=== PATIENT | female | born 1970 | race Caucasian/White ===

== ENCOUNTER 2020-11-03 15:55 | Inpatient (IN) | payer BC ==
[2020-11-03] MEDS ORDERED: FEVERALL 650 MG PR PRN (16:07)
[2020-11-03 16:59] LABS: Absolute Neutrophil Ct (ANC) 11.43 (1.4-6.9); BASOPHIL % 0.1 % (0.0-0.4); Basophil (Absolute #) 0.01 (0-0.4); Eosinophil (Absolute #) 0 (0-0.5); Hematocrit 37.1 % (35-47); Hemoglobin 11.6 gm/dl (12.0-16.0); Lymphocyte (Absolute #) 0.14 (1.0-4.6); Lymphocytes % 1.2 % (24.0-44.0); Mean Cell Volume 71.2 fl (78-100); Mean Corpuscular Hemoglobin 22.3 pg (26-32); Mean Corpuscular Hgb Concent. 31.3 g/dl (32-36); Monocyte (Absolute #) 0.21 (0.0-1.3); Monocytes % 1.8 % (0.0-12.0); Neutrophil % 96.9 % (36.0-66.0); Platelet Count 638 K/mm3 (150-450); Red Blood Count 5.21 M/mm3 (4.1-5.4); Red Cell Distribution Width 21.7 % (11.5-14.0); White Blood Count 11.8 K/mm3 (4.0-10.5)
[2020-11-03] MEDS ORDERED: solu-MEDROL 125 MG IV ONE (17:00)
--- NOTE | 2020-11-03 17:02 | PCM.HP ---
History of Present Illness - Chief Complaint Chief Complaint: partial small bowel obstruction History of Present Illness: is a 50 year old female patient of Dr Rodgers with a longstanding history of Crohn's disease, she has been on entyvio for the last year but has had recent flares, for the last several days had been unable to have a bowel movement and complains of pain in her periumbilical and epigastric region with vomiting and inability to tolerate po intake. - Review of Systems Constitutional: No Fever, No Chills Respiratory: No Cough, No Short Of Breath Cardiac: No Chest Pain, No Edema, No Syncope Abdominal/Gastrointestinal: Abdominal Pain, Nausea, Vomiting, Constipation Genitourinary Symptoms: No Dysuria Skin: No Rash All Other Systems: Reviewed and Negative Medications & Allergies Home Medications: Home Medication List Azathioprine [Imuran] 50 mg PO TID 10/13/19 [History Confirmed 10/25/20] Prednisone 5 mg [Deltasone 5 mg] 10 mg PO DAILY PRN PRN 10/13/19 [History Confirmed 10/25/20] Ferrous Sulfate [Iron] 325 mg PO DAILY 02/18/20 [History Confirmed 10/25/20] Allergies/Adverse Reactions: Allergies Allergy/AdvReac Type Severity Reaction Status Date / Time No Known Drug Allergies Allergy Verified 08/30/20 12:51 - Past Medical History Past Medical History: Yes Neurological History: No Pertinent History ENT History: No Pertinent History Cardiac History: No Pertinent History Respiratory History: No Pertinent History Endocrine Medical History: No Pertinent History Musculoskelatal History: Other GI Medical History: Other History: No Pertinent History Pyscho-Social History: No Pertinent History Reproductive Disorders: No Pertinent History Comment: crohns and anemia - Past Surgical History Past Surgical History: Yes Neuro Surgical History: No Pertinent History Cardiac History: No Pertinent History Respiratory Surgery: No Pertinent History GI Surgical History: No Pertinent History Genitourinary Surgical Hx: No Pertinent History Musculskeletal Surgical Hx: No Pertinent History Female Surgical History: Other Other Surgical History: uterine ablation - Social History Smoking Status: Never smoker Exposure to second hand smoke: No Alcohol: None Drug Use: none - Physical Exam Vital Signs: Vital Signs - 24 hr Temp Pulse Resp BP Pulse Ox 11/03/20 16:44 98 F 109 H 18 145/71 97 General Appearance: mild distress Neurologic Exam: alert, oriented x 3, cooperative Respiratory Exam: normal breath sounds, lungs clear, No respiratory distress Cardiovascular Exam: regular rate/rhythm, normal heart sounds, normal peripheral pulses Gastrointestinal/Abdomen Exam: soft, distention, No normal bowel sounds, No guarding, No rebound Extremity Exam: normal inspection, normal range of motion, pelvis stable Skin Exam: normal color, warm, dry, No rash Assessment/Plan (1) Partial obstruction of small intestine Current Visit: Yes Status: Acute Assessment & Plan: surgery consulted, I spoke with Dr Mychal Swain on telephone at the time of admission and discussed current management Code(s): K56.600 - PARTIAL INTESTINAL OBSTRUCTION, UNSPECIFIED TO CAUSE (2) Crohns disease of small intestine Current Visit: Yes Status: Acute Assessment & Plan: NPO, IV fluids and started on solu medrol 125mg iv x 1 then 80mg IV q6hrs as well as levaquin/flagyl. surgery consulted, will treat partial SBO conservatively at this time. lovenox started, no immediate surgical intervention is anticipated. Code(s): K50.00 - CROHN'S DISEASE OF SMALL INTESTINE WITHOUT COMPLICATIONS
[2020-11-03 17:27] LABS: ALBUMIN 4.5 g/dL (3.5-5.0); ANION GAP 21.7 MEQ/L (5-15); BILIRUBIN,TOTAL 0.5 mg/dL (0.2-1.3); Calcium 10.2 mg/dL (8.4-10.2); Creatinine 1 1.74 mg/dL (0.52-1.04); EST GLOMERULAR FILTRATION RATE 32.7 ML/MIN; Total Protein 8.1 g/dL (6.3-8.2)
[2020-11-03 17:29] LABS: INFLUENZA A NEGATIVE (NEGATIVE); INFLUENZA B NEGATIVE (NEGATIVE); RESPIRATORY SYNCTIAL VIRUS NEGATIVE (Negative)
[2020-11-03] MEDS: Zofran 4 MG/2 ML VIAL IV PRN (17:46)
[2020-11-03] MEDS: Hydromorphone 1 mg/ml Injection IV PRN (17:47)
[2020-11-03] MEDS: Levofloxacin 500MG/100ML D5W 500 MG/100 ML BAG IV SCH (19:01)
[2020-11-03] MEDS: Dextrose 5% -0.45 NaCl 1000 ML 1,000 ML IV SCH (19:01)
[2020-11-03 19:27] LABS: Slide Review 1 YES
[2020-11-03] MEDS: FLAGYL 500 MG IVPB 500 MG/100 ML BAG IV SCH (20:23)
[2020-11-03 21:03] LABS: Appearance CLEAR (CLEAR); Bacteria FEW /HPF (NEGATIVE); Bilirubin NEGATIVE (NEGATIVE); Blood SMALL Ery/ul (0-5); Epithelial Cells RARE /HPF (FEW); Glucose NEGATIVE (NEGATIVE); Ketones SMALL (NEGATIVE); Leukocyte Esterase MODERATE (NEGATIVE); Mucus SLIGHT /HPF (NEGATIVE); Nitrite NEGATIVE (NEGATIVE); Protein,Urine Dip 100 (Negative); Urobilinogen NEGATIVE mg/dL (0-1)
[2020-11-03] MEDS ORDERED: AZATHIOPRINE 150 MG PO SCH (22:00)
[2020-11-03] MEDS: PATIENT OWN MEDICATION PO SCH (22:50)
[2020-11-04] MEDS: Hydromorphone 1 mg/ml Injection IV PRN (00:48)
[2020-11-04] MEDS: solu-MEDROL 125 MG IV SCH ×2 (00:49→06:27)
[2020-11-04] MEDS: FLAGYL 500 MG IVPB 500 MG/100 ML BAG IV SCH ×3 (00:49→11:57)
[2020-11-04 06:31] LABS: ALBUMIN 3.7 g/dL (3.5-5.0); ALKALINE PHOSPHATASE 56 U/L (38-126); ANION GAP 12.3 MEQ/L (5-15); BLOOD UREA NITROGEN 26 mg/dL (7-17); CHLORIDE 95 mmol/L (98-107); Calcium 9.3 mg/dL (8.4-10.2); Carbon Dioxide 30 mmol/L (22-30); Creatinine 1 1.02 mg/dL (0.52-1.04); EST GLOMERULAR FILTRATION RATE > 60.0 ML/MIN; Glucose 173 mg/dL (74-106); Potassium 4.1 mmol/L (3.5-5.1); SGOT/AST 13 U/L (14-36); SGPT/ALT 7 U/L (0-35); SODIUM 133 mmol/L (137-145); Total Protein 6.6 g/dL (6.3-8.2)
[2020-11-04 06:45] LABS: Absolute Neutrophil Ct (ANC) 4.76 (1.4-6.9); BASOPHIL % 0.2 % (0.0-0.4); Basophil (Absolute #) 0.01 (0-0.4); Eosinophil (Absolute #) 0 (0-0.5); Hematocrit 31.8 % (35-47); Hemoglobin 9.6 gm/dl (12.0-16.0); Lymphocyte (Absolute #) 0.12 (1.0-4.6); Lymphocytes % 2.4 % (24.0-44.0); Mean Cell Volume 72.3 fl (78-100); Mean Corpuscular Hemoglobin 21.8 pg (26-32); Mean Corpuscular Hgb Concent. 30.2 g/dl (32-36); Monocyte (Absolute #) 0.11 (0.0-1.3); Monocytes % 2.2 % (0.0-12.0); Neutrophil % 95.2 % (36.0-66.0); Platelet Count 461 K/mm3 (150-450); Red Cell Distribution Width 20.8 % (11.5-14.0)
[2020-11-04] MEDS: Zofran 4 MG/2 ML VIAL IV PRN ×2 (07:36→14:08)
[2020-11-04] MEDS: Dextrose 5% -0.45 NaCl 1000 ML 1,000 ML IV SCH (07:36)
--- NOTE | 2020-11-04 08:11 | PCM.NOTE ---
Date and Time: 11/04/20809 Subjective Assessment: patient reports her pain and nausea are currently well controlled with meds and she is feeling slightly better today. Dr Swain saw patient last night and planning for a resection of distal small bowel later today due to recurrence of flares and difficulty tolerating po Objective Exam General Appearance: no apparent distress, alert Skin Exam: normal color, warm, dry Respiratory Exam: normal breath sounds, lungs clear, No respiratory distress Cardiovascular Exam: regular rate/rhythm, normal heart sounds Gastrointestinal/Abdomen Exam: soft, distention, No normal bowel sounds Extremity Exam: normal inspection, normal range of motion OBJECTIVE DATA Vital Signs: Vital Signs - 24 hr Temp Pulse Resp BP Pulse Ox 11/04/20 08:00 97.5 F 62 18 121/57 98 11/04/20 07:58 121/57 11/04/20 04:10 97.4 F 62 16 111/55 97 11/04/20 00:00 98.3 F 86 16 117/58 97 11/03/20 20:00 98.1 F 94 H 18 116/60 96 11/03/20 17:03 98.0 F 108 H 18 145/71 97 11/03/20 16:44 98 F 109 H 18 145/71 97 Pain Assessment - Last Documented Pain Intensity 0 Pain Scale Used 0-10 Pain Scale Intake and Output: Intake & Output 11/01/20 11/02/20 11/03/20 11/04/20 11:59 11:59 11:59 11:59 Intake Total 1000 Output Total 300 Balance 700 Weight 68.3 kg Lab Results: Lab Results-Last 24 Hours 11/03/20 11/03/20 11/03/20 Range/Units 16:29 16:45 16:45 WBC 11.8 H (4.0-10.5) K/mm3 RBC 5.21 (4.1-5.4) M/mm3 Hgb 11.6 L (12.0-16.0) gm/dl Hct 37.1 (35-47) % MCV 71.2 L (78-100) fl MCH 22.3 L (26-32) pg MCHC 31.3 L (32-36) g/dl RDW 21.7 H (11.5-14.0) % Plt Count 638 H (150-450) K/mm3 Gran % 96.9 H (36.0-66.0) % Eos # (Auto) 0 (0-0.5) Absolute Lymphs (auto) 0.14 L (1.0-4.6) Absolute Monos (auto) 0.21 (0.0-1.3) Lymphocytes % 1.2 L (24.0-44.0) % Monocytes % 1.8 (0.0-12.0) % Eosinophils % 0.0 (0.00-5.0) % Basophils % 0.1 (0.0-0.4) % Absolute Granulocytes 11.43 H (1.4-6.9) Basophils # 0.01 (0-0.4) Sodium 134 L (137-145) mmol/L Potassium 4.0 (3.5-5.1) mmol/L Chloride 92 L (98-107) mmol/L Carbon Dioxide 24 (22-30) mmol/L Anion Gap 21.7 H (5-15) MEQ/L BUN 32 H (7-17) mg/dL Creatinine 1.74 H (0.52-1.04) mg/dL Estimated GFR 32.7 ML/MIN Glucose 176 H (74-106) mg/dL Calcium 10.2 (8.4-10.2) mg/dL Total Bilirubin 0.50 (0.2-1.3) mg/dL AST 18 (14-36) U/L ALT 11 (0-35) U/L Alkaline Phosphatase 84 (38-126) U/L Serum Total Protein 8.1 (6.3-8.2) g/dL Albumin 4.5 (3.5-5.0) g/dL Urine Color (YELLOW) Urine Appearance (CLEAR) Urine pH (5-6) Ur Specific [place] (1.005-1.025) Urine Protein (Negative) Urine Ketones (NEGATIVE) Urine Blood (0-5) Jose C/ul Urine Nitrite (NEGATIVE) Urine Bilirubin (NEGATIVE) Urine Urobilinogen (0-1) mg/dL Ur Leukocyte Esterase (NEGATIVE) Urine WBC (Auto) (0-5) /HPF Urine RBC (Auto) (0-2) /HPF U Epithel Cells (Auto) (FEW) /HPF Urine Bacteria (Auto) (NEGATIVE) /HPF Urine Mucus (Auto) (NEGATIVE) /HPF Urine Culture Reflexed (NO) Urine Glucose (NEGATIVE) mg/dL Influenza Type A Ag NEGATIVE (NEGATIVE) Influenza Type B Ag NEGATIVE (NEGATIVE) RSV (PCR) NEGATIVE (Negative) SARS-CoV-2 (PCR) NEGATIVE (NEGATIVE) Slides for Path Review YES 11/03/20 11/04/20 11/04/20 Range/Units 20:20 05:15 05:15 WBC 5.0 (4.0-10.5) K/mm3 RBC 4.40 (4.1-5.4) M/mm3 Hgb 9.6 L (12.0-16.0) gm/dl Hct 31.8 L (35-47) % MCV 72.3 L (78-100) fl MCH 21.8 L (26-32) pg MCHC 30.2 L (32-36) g/dl RDW 20.8 H (11.5-14.0) % Plt Count 461 H (150-450) K/mm3 Gran % 95.2 H (36.0-66.0) % Eos # (Auto) 0 (0-0.5) Absolute Lymphs (auto) 0.12 L (1.0-4.6) Absolute Monos (auto) 0.11 (0.0-1.3) Lymphocytes % 2.4 L (24.0-44.0) % Monocytes % 2.2 (0.0-12.0) % Eosinophils % 0.0 (0.00-5.0) % Basophils % 0.2 (0.0-0.4) % Absolute Granulocytes 4.76 (1.4-6.9) Basophils # 0.01 (0-0.4) Sodium 133 L (137-145) mmol/L Potassium 4.1 (3.5-5.1) mmol/L Chloride 95 L (98-107) mmol/L Carbon Dioxide 30 (22-30) mmol/L Anion Gap 12.3 (5-15) MEQ/L BUN 26 H (7-17) mg/dL Creatinine 1.02 (0.52-1.04) mg/dL Estimated GFR > 60.0 ML/MIN Glucose 173 H (74-106) mg/dL Calcium 9.3 (8.4-10.2) mg/dL Total Bilirubin 0.40 (0.2-1.3) mg/dL AST 13 L (14-36) U/L ALT 7 (0-35) U/L Alkaline Phosphatase 56 (38-126) U/L Serum Total Protein 6.6 (6.3-8.2) g/dL Albumin 3.7 (3.5-5.0) g/dL Urine Color YELLOW (YELLOW) Urine Appearance CLEAR (CLEAR) Urine pH 5.0 (5-6) Ur Specific [place] S3 (1.005-1.025) Urine Protein 100 (Negative) Urine Ketones SMALL (NEGATIVE) Urine Blood SMALL (0-5) Jose C/ul Urine Nitrite NEGATIVE (NEGATIVE) Urine Bilirubin NEGATIVE (NEGATIVE) Urine Urobilinogen NEGATIVE (0-1) mg/dL Ur Leukocyte Esterase MODERATE (NEGATIVE) Urine WBC (Auto) 11-15 (0-5) /HPF Urine RBC (Auto) 11-15 (0-2) /HPF U Epithel Cells (Auto) RARE (FEW) /HPF Urine Bacteria (Auto) FEW (NEGATIVE) /HPF Urine Mucus (Auto) SLIGHT (NEGATIVE) /HPF Urine Culture Reflexed YES (NO) Urine Glucose NEGATIVE (NEGATIVE) mg/dL Influenza Type A Ag (NEGATIVE) Influenza Type B Ag (NEGATIVE) RSV (PCR) (Negative) SARS-CoV-2 (PCR) (NEGATIVE) Slides for Path Review Assessment/Plan (1) Partial obstruction of small intestine Current Visit: Yes Status: Acute Assessment & Plan: surgery consult, appreciate input Code(s): K56.600 - PARTIAL INTESTINAL OBSTRUCTION, UNSPECIFIED TO CAUSE (2) Crohns disease of small intestine Current Visit: Yes Status: Acute Code(s): K50.00 - CROHN'S DISEASE OF SMALL INTESTINE WITHOUT COMPLICATIONS
[2020-11-04] MEDS: PATIENT OWN MEDICATION PO SCH ×2 (09:44→14:10)
[2020-11-04] MEDS ORDERED: ENOXAPARIN SODIUM SQ SCH (10:00)
[2020-11-04 13:04] LABS: ABO TYPING A; Antibody Screen NEGATIVE (NEGATIVE); RH TYPING NEGATIVE
--- NOTE | 2020-11-04 14:23 | CONS ---
CONSULT DATE: 11/03/2020 REASON FOR CONSULT: Small bowel obstruction and Crohn's. HISTORY: We sat down and had about a 30 minute conversation concerning her Crohn's disease yesterday. It goes back some twelve years when she presented to [facility]. She was able to be evaluated and diagnosed without a laparotomy but at this point over a period of about twelve years she has not had any intra-abdominal surgery related to her Crohn's disease. She was diagnosed twelve years ago. She was diagnosed by Dr. Ramos by a scope. She was on Remicade for a year. She was switched over to a different medication that seemed to help more. Basically, a light therapeutic agent and she was on that for quite some while and then about a year ago she was having trouble. She was diagnosed with a stricture and she was placed on IV Entero for about a year. Just recently she had an attacks over the last two weeks. She had a higher dose of steroids and did not resolve. She presented to the hospital. She has lost some weight. She had been having some vomiting, diarrhea, dehydration. Her renal numbers are up some now. I guess her renal numbers were up some with the prep a few years ago. Otherwise she is really quite healthy. No cardiac issues or pulmonary issues. 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 No liver issues. SOCIAL HISTORY: Negative tobacco. Negative ETOH. FAMILY HISTORY: Negative. There is one family member with ulcerative colitis but not Crohn's. PHYSICAL EXAMINATION: She is slender. Vital signs normal. CHEST: Clear. COR: Regular. ABDOMEN: Distended. LAB DATA AND TESTS: Her CT scan showed small bowel obstruction. IMPRESSION: [place] discussion. At this time she has basically exhausted medical treatment and surgical resection of the involved area would be in order as this is usually a partial ileocolectomy and there usually is a primary anastomosis, this was all discussed with her. She wishes to proceed. We are working on doing this either on Saturday or Saturday.
[2020-11-04] MEDS ORDERED: Lactated Ringers 1,000 ML IV SCH (15:30)
[2020-11-04] MEDS ORDERED: MEFOXIN 2 GM PREMIX** 2 GM/50 ML ML IV SCH (16:00)
[2020-11-04] MEDS: Levofloxacin 500MG/100ML D5W 500 MG/100 ML BAG IV SCH (16:44)
[2020-11-04] MEDS ORDERED: Versed 2 MG/2 ML Injection ONE (17:11)
[2020-11-04] MEDS ORDERED: Quelicin Fliptop 200 MG/10 ML ONE (17:11)
[2020-11-04] MEDS ORDERED: SUBLIMAZE 100 MCG/2 ML ONE ×4 (17:11→23:42)
[2020-11-04] MEDS ORDERED: Zemuron 100 MG/10 ML ONE ×3 (17:11→20:24)
[2020-11-04] MEDS ORDERED: DIPRIVAN 200 MG/20 ML IV ONE (17:11)
[2020-11-04] MEDS ORDERED: Astramorph-Pf 5 MG/10 ML ONE (17:18)
[2020-11-04] MEDS ORDERED: Lactated Ringers 1,000 ML IV ONE (17:21)
[2020-11-04] MEDS ORDERED: Hydromorphone 1 mg/ml Injection IV PRN (18:18)
[2020-11-04] MEDS ORDERED: Xylocaine-Mpf 2% 5 Ml Vial ONE (18:43)
[2020-11-04] MEDS ORDERED: Lactated Ringers 3,000 ML IV ONE (18:58)
[2020-11-04] MEDS ORDERED: Sodium Chloride 0.9% 500 ML 500 ML IV ONE (20:33)
[2020-11-04] MEDS ORDERED: Methergine ONE (20:51)
[2020-11-04] MEDS ORDERED: Sodium Chloride 0.9% 1000 ML 2,000 ML ONE (21:13)
[2020-11-04 21:16] LABS: A-aADO2 180; ABG POTASSIUM 3.9 (3.5-5.1); ARTERIAL BLD GAS O2 SATURATION 98.7 % (95-100); ARTERIAL BLOOD GAS BASE EXCESS 3.2 (-2.0-2.0); ARTERIAL BLOOD GAS FIO2 100 %; ARTERIAL BLOOD GAS PCO2 37 mmHg (35-45); ARTERIAL BLOOD GAS PO2 487 mmHg (75-100); ARTERIAL BLOOD GAS pH 7.47 (7.35-7.45); CARBOXYHEMOGLOBIN 0.3 % THgb (0.0-6.9); HCO3- 26.9 (22-28); HGB O2 SAT 97.6 g/dF (94-100); Methhemoglobin 0.9 % (1.4-1.5)
[2020-11-04 21:17] LABS: ABG HEMOGLOBIN 7.9; ABG SITE DONE IN OR
[2020-11-04 21:18] LABS: ALLEN TEST OK? YES
[2020-11-04] MEDS ORDERED: Lasix 20 MG/2 ML ONE (21:19)
[2020-11-04] MEDS ORDERED: Marcaine 0.5%/Epinephrine 10 ML ONE (22:10)
[2020-11-04] MEDS ORDERED: MARCAINE 0.5%-EPI 1:200,000 VL IJ ONE (22:10)
[2020-11-04] MEDS ORDERED: BRIDION 200MG/2ML IV ONE (22:43)
[2020-11-04 23:32] LABS: Hematocrit 27.2 % (35-47); Hemoglobin 8.2 gm/dl (12.0-16.0); Mean Cell Volume 72.5 fl (78-100); Mean Corpuscular Hemoglobin 21.9 pg (26-32); Mean Corpuscular Hgb Concent. 30.1 g/dl (32-36); Mean Platelet Volume 9.7 fl (7.5-11.0); Platelet Count 636 K/mm3 (150-450); Red Blood Count 3.75 M/mm3 (4.1-5.4); Red Cell Distribution Width 21.3 % (11.5-14.0)
[2020-11-04 23:33] LABS: White Blood Count 29.3 K/mm3 (4.0-10.5)
[2020-11-04 23:43] LABS: ALBUMIN 2.1 g/dL (3.5-5.0); ALKALINE PHOSPHATASE 32 U/L (38-126); BLOOD UREA NITROGEN 19 mg/dL (7-17); CHLORIDE 104 mmol/L (98-107); Calcium 7.6 mg/dL (8.4-10.2); Carbon Dioxide 26 mmol/L (22-30); Creatinine 1 0.87 mg/dL (0.52-1.04); EST GLOMERULAR FILTRATION RATE > 60.0 ML/MIN; Glucose 156 mg/dL (74-106); MAGNESIUM 1.5 mg/dL (1.6-2.3); Potassium 3.6 mmol/L (3.5-5.1); SGOT/AST 18 U/L (14-36); SGPT/ALT 10 U/L (0-35); SODIUM 132 mmol/L (137-145); Total Protein 4.2 g/dL (6.3-8.2)
[2020-11-05] MEDS: FLAGYL 500 MG IVPB 500 MG/100 ML BAG IV SCH ×6 (00:24→23:38)
[2020-11-05] MEDS: Dextrose 5% -0.45 NaCl 1000 ML 1,000 ML IV SCH ×5 (00:30→23:37)
[2020-11-05 00:42] LABS: BAND 8 % (0.0-2.0); Hypochromia 2+; Lymphocytes 2 % (24-44); Monocyte 5 % (0.0-12.0); Neutrophils 85 % (36.0-66.0); Poikilocytosis 2+; Total Cells Counted 100
[2020-11-05 00:43] LABS: ANISOCYTOSIS 2+; Microcytosis 2+; Ovalocytes 1+; Tear Drop Cells 1+
[2020-11-05 00:44] LABS: Platelet Estimate NORMAL (NORMAL); Schistocytes 1+
[2020-11-05] MEDS: PATIENT OWN MEDICATION PO SCH ×4 (01:05→19:58)
[2020-11-05] MEDS ORDERED: PERCOCET TABLET 5/325MG PO PRN (01:07)
[2020-11-05] MEDS ORDERED: HOLD NARCOTIC ANALGESICS AND SEDATIVES X24 HR MC PRN (01:07)
[2020-11-05] MEDS ORDERED: Narcan 0.4 MG/ML IV PRN (01:07)
[2020-11-05] MEDS ORDERED: DEMEROL 50 MG IV PRN (01:07)
[2020-11-05] MEDS ORDERED: Nubain 10 MG/ML IV PRN (01:07)
[2020-11-05] MEDS ORDERED: MORPHINE SULFATE 2 MG INJ IV PRN (01:07)
[2020-11-05] MEDS ORDERED: CLARITIN 10 MG PO PRN (01:07)
[2020-11-05] MEDS: Magnesium 1 Gm / 100 Ml D5W*** 100 ML IV SCH ×2 (02:04→02:41)
[2020-11-05] MEDS: Zofran 4 MG/2 ML VIAL IV PRN (02:07)
[2020-11-05] MEDS: BENADRYL 50 MG/ML IV PRN ×2 (02:12→10:24)
[2020-11-05 02:43] LABS: Appearance TURBID (CLEAR); Bacteria MODERATE /HPF (NEGATIVE); Bilirubin SMALL (NEGATIVE); Blood LARGE Ery/ul (0-5); Glucose NEGATIVE (NEGATIVE); Ketones NEGATIVE (NEGATIVE); Leukocyte Esterase SMALL (NEGATIVE); Mucus SLIGHT /HPF (NEGATIVE); Nitrite NEGATIVE (NEGATIVE); Protein,Urine Dip 100 (Negative); Urobilinogen NEGATIVE mg/dL (0-1); WBC 26-50 /HPF (0-5)
[2020-11-05 07:16] LABS: ALBUMIN 2.2 g/dL (3.5-5.0); ALKALINE PHOSPHATASE 32 U/L (38-126); ANION GAP 8.4 MEQ/L (5-15); BLOOD UREA NITROGEN 20 mg/dL (7-17); CHLORIDE 101 mmol/L (98-107); Calcium 7.6 mg/dL (8.4-10.2); Carbon Dioxide 24 mmol/L (22-30); EST GLOMERULAR FILTRATION RATE > 60.0 ML/MIN; Glucose 155 mg/dL (74-106); MAGNESIUM 2.6 mg/dL (1.6-2.3); Potassium 3.9 mmol/L (3.5-5.1); SGOT/AST 17 U/L (14-36); SGPT/ALT 8 U/L (0-35); SODIUM 130 mmol/L (137-145); Total Protein 4.4 g/dL (6.3-8.2)
[2020-11-05 07:23] LABS: Hematocrit 28.1 % (35-47); Hemoglobin 7.9 gm/dl (12.0-16.0); Mean Cell Volume 76.4 fl (78-100); Mean Corpuscular Hemoglobin 21.5 pg (26-32); Mean Corpuscular Hgb Concent. 28.1 g/dl (32-36); Platelet Count 464 K/mm3 (150-450); Red Blood Count 3.68 M/mm3 (4.1-5.4); Red Cell Distribution Width 21.8 % (11.5-14.0); White Blood Count 17.1 K/mm3 (4.0-10.5)
[2020-11-05] MEDS: Sodium Chloride 0.9% 10 ML FLUSH Syringe IJ SCH ×3 (07:31→19:58)
[2020-11-05] MEDS: Hydromorphone 1 mg/ml Injection IV PRN ×5 (07:51→22:09)
[2020-11-05] MEDS ORDERED: CHLORASEPTIC SPRAY 180 ML PO PRN (12:27)
--- NOTE | 2020-11-05 13:33 | PCM.NOTE ---
Date and Time: 11/05/20 7598 Subjective Assessment: Pt's surgery went well last night, Dr. Mychal Swain, thank you. Apparently there was some blood loss, approx 1 L. Her Hgb is stable this morning at 7.9 (was 8.3 overnight). She does have a colostomy currently. Pt is tearful at times during exam, but she denies nausea and is not complaining of pain (has been getting IV dilaudid). Her only complaint is sore throat and discomfort with the NG tube. - Review of Systems Constitutional: No Fever Abdominal/Gastrointestinal: No Vomiting Objective Exam General Appearance: no apparent distress, alert Neurologic Exam: oriented x 3, cooperative, other (cries intermittently.) Skin Exam: normal color, warm, dry, No rash Eye Exam: eyes nml inspection Ears, Nose, Throat Exam: other (NG tube present) Neck Exam: normal inspection Respiratory Exam: normal breath sounds, lungs clear, No crackles/rales, No rhonchi, No wheezing Cardiovascular Exam: regular rate/rhythm, normal heart sounds, No murmur Gastrointestinal/Abdomen Exam: soft, other (binder in place; after removing it, her bandages are clean and dry. RC drains in place with serosanguinous drainage. BS are hypoactive but present.) Extremity Exam: normal inspection, No pedal edema, No swelling Back Exam: normal inspection, No rash OBJECTIVE DATA Vital Signs: Vital Signs - 24 hr Temp Pulse Resp BP Pulse Ox 11/05/20 08:08 94 L 11/05/20 08:00 89 11/05/20 06:00 89 15 111/70 100 11/05/20 05:00 83 24 106/65 100 11/05/20 04:00 97.8 F 81 14 98/64 99 11/05/20 03:00 82 18 105/60 96 11/05/20 02:00 74 17 112/69 96 11/05/20 01:07 98 H 17 117/74 94 L 11/05/20 01:04 94 L 11/05/20 00:36 98.4 F 98 H 20 95/68 98 11/05/20 00:00 98.3 F 73 16 107/63 8 L 11/04/20 16:00 98.3 F 64 16 105/55 95 Pain Assessment - Last Documented Pain Intensity 3 Pain Scale Used 0-10 Pain Scale Intake and Output: Intake & Output 11/03/20 11/04/20 11/05/20 11/06/20 11:59 11:59 11:59 11:59 Intake Total 1000 766 Output Total 300 920 Balance 700 -154 Weight 68.3 kg Lab Results: Lab Results-Last 24 Hours 11/04/20 11/04/20 11/04/20 Range/Units 18:39 20:51 23:00 WBC 29.3 H* (4.0-10.5) K/mm3 RBC 3.75 L (4.1-5.4) M/mm3 Hgb 8.2 L (12.0-16.0) gm/dl Hct 27.2 L (35-47) % MCV 72.5 L (78-100) fl MCH 21.9 L (26-32) pg MCHC 30.1 L (32-36) g/dl RDW 21.3 H (11.5-14.0) % Plt Count 636 H D (150-450) K/mm3 MPV 9.7 (7.5-11.0) fl Segmented Neutrophils 85 H (36.0-66.0) % Band Neutrophils 8 H (0.0-2.0) % Lymphocytes (Manual) 2 L (24-44) % Monocytes (Manual) 5 (0.0-12.0) % Hypochromia 2+ Platelet Estimate NORMAL (NORMAL) RBC Morphology ABNORMAL Poikilocytosis 2+ Anisocytosis 2+ Microcytosis 2+ Tear Drop Cells 1+ Ovalocytes 1+ Schistocytes 1+ Puncture Site DONE IN OR pCO2 37 (35-45) mmHg pO2 487 H* (75-100) mmHg Base Excess 3.2 H (-2.0-2.0) O2 Saturation 97.6 (94-100) g/dF ABG pH 7.47 H (7.35-7.45) ABG HCO3 26.9 (22-28) ABG O2 Sat (Measured) 98.7 (95-100) % [place] Test YES A-a Gradient 180 a/A Ratio 0.73 Hemoglobin 7.9 Carboxyhemoglobin 0.3 (0.0-6.9) % THgb Methemoglobin 0.9 L (1.4-1.5) % Potassium 3.9 (3.5-5.1) Temperature 37.0 C POC O2 Flow Rate 100 % Sodium (137-145) mmol/L Chloride (98-107) mmol/L Carbon Dioxide (22-30) mmol/L Anion Gap (5-15) MEQ/L BUN (7-17) mg/dL Creatinine (0.52-1.04) mg/dL Estimated GFR ML/MIN Glucose (74-106) mg/dL Calcium (8.4-10.2) mg/dL Magnesium (1.6-2.3) mg/dL Total Bilirubin (0.2-1.3) mg/dL AST (14-36) U/L ALT (0-35) U/L Alkaline Phosphatase (38-126) U/L Serum Total Protein (6.3-8.2) g/dL Albumin (3.5-5.0) g/dL Urine Color YELLOW (YELLOW) Urine Appearance TURBID (CLEAR) Urine pH 5.0 (5-6) Ur Specific [place] 1.030 (1.005-1.025) Urine Protein 100 (Negative) Urine Ketones NEGATIVE (NEGATIVE) Urine Blood LARGE (0-5) Jose C/ul Urine Nitrite NEGATIVE (NEGATIVE) Urine Bilirubin SMALL (NEGATIVE) Urine Urobilinogen NEGATIVE (0-1) mg/dL Ur Leukocyte Esterase SMALL (NEGATIVE) Urine WBC (Auto) 26-50 (0-5) /HPF Urine RBC (Auto) 6-10 (0-2) /HPF U Epithel Cells (Auto) NONE (FEW) /HPF Urine Bacteria (Auto) MODERATE (NEGATIVE) /HPF Urine Mucus (Auto) SLIGHT (NEGATIVE) /HPF Urine Glucose NEGATIVE (NEGATIVE) mg/dL 11/04/20 11/05/20 11/05/20 Range/Units 23:00 05:00 05:00 WBC 17.1 H (4.0-10.5) K/mm3 RBC 3.68 L (4.1-5.4) M/mm3 Hgb 7.9 L (12.0-16.0) gm/dl Hct 28.1 L (35-47) % MCV 76.4 L (78-100) fl MCH 21.5 L (26-32) pg MCHC 28.1 L (32-36) g/dl RDW 21.8 H (11.5-14.0) % Plt Count 464 H (150-450) K/mm3 MPV (7.5-11.0) fl Segmented Neutrophils (36.0-66.0) % Band Neutrophils (0.0-2.0) % Lymphocytes (Manual) (24-44) % Monocytes (Manual) (0.0-12.0) % Hypochromia Platelet Estimate (NORMAL) RBC Morphology Poikilocytosis Anisocytosis Microcytosis Tear Drop Cells Ovalocytes Schistocytes Puncture Site pCO2 (35-45) mmHg pO2 (75-100) mmHg Base Excess (-2.0-2.0) O2 Saturation (94-100) g/dF ABG pH (7.35-7.45) ABG HCO3 (22-28) ABG O2 Sat (Measured) (95-100) % [place] Test A-a Gradient a/A Ratio Hemoglobin Carboxyhemoglobin (0.0-6.9) % THgb Methemoglobin (1.4-1.5) % Potassium 3.6 3.9 (3.5-5.1) Temperature C POC O2 Flow Rate % Sodium 132 L 130 L (137-145) mmol/L Chloride 104 101 (98-107) mmol/L Carbon Dioxide 26 24 (22-30) mmol/L Anion Gap 6.0 8.4 (5-15) MEQ/L BUN 19 H 20 H (7-17) mg/dL Creatinine 0.87 0.90 (0.52-1.04) mg/dL Estimated GFR > 60.0 > 60.0 ML/MIN Glucose 156 H 155 H (74-106) mg/dL Calcium 7.6 L D 7.6 L (8.4-10.2) mg/dL Magnesium 1.5 L 2.6 H (1.6-2.3) mg/dL Total Bilirubin 0.40 0.20 (0.2-1.3) mg/dL AST 18 17 (14-36) U/L ALT 10 8 (0-35) U/L Alkaline Phosphatase 32 L 32 L (38-126) U/L Serum Total Protein 4.2 L 4.4 L (6.3-8.2) g/dL Albumin 2.1 L 2.2 L (3.5-5.0) g/dL Urine Color (YELLOW) Urine Appearance (CLEAR) Urine pH (5-6) Ur Specific [place] (1.005-1.025) Urine Protein (Negative) Urine Ketones (NEGATIVE) Urine Blood (0-5) Jose C/ul Urine Nitrite (NEGATIVE) Urine Bilirubin (NEGATIVE) Urine Urobilinogen (0-1) mg/dL Ur Leukocyte Esterase (NEGATIVE) Urine WBC (Auto) (0-5) /HPF Urine RBC (Auto) (0-2) /HPF U Epithel Cells (Auto) (FEW) /HPF Urine Bacteria (Auto) (NEGATIVE) /HPF Urine Mucus (Auto) (NEGATIVE) /HPF Urine Glucose (NEGATIVE) mg/dL Assessment/Plan (1) S/P colon resection Current Visit: Yes Status: Acute Assessment & Plan: POD #1. She is stable. Needs to be closely monitored though as she did have major surgery involving significant blood loss. Code(s): Z90.49 - ACQUIRED ABSENCE OF OTHER SPECIFIED PARTS OF DIGESTIVE TRACT (2) Crohn disease Current Visit: Yes Status: Chronic Qualifiers: Gastrointestinal tract location: unspecified location Digestive disease complication type: with intestinal obstruction Qualified Code(s): K50.912 - Crohn's disease, unspecified, with intestinal obstruction Code(s): K50.90 - CROHN'S DISEASE, UNSPECIFIED, WITHOUT COMPLICATIONS (3) Anemia Current Visit: Yes Status: Acute Qualifiers: Anemia type: iron deficiency Iron deficiency anemia type: chronic blood loss Qualified Code(s): D50.0 - Iron deficiency anemia secondary to blood loss (chronic) Assessment & Plan: Her initial Hgb was quite good (she notes she's been taking iron at home). Stable now around 8; if drops below 7, would transfuse 2 units PRBC. Code(s): D64.9 - ANEMIA, UNSPECIFIED
[2020-11-05 14:39] LABS: ANISOCYTOSIS 1+; BAND 7 % (0.0-2.0); Basophil 1 % (0.0-1.0); Lymphocytes 5 % (24-44); Monocyte 2 % (0.0-12.0); Neutrophils 85 % (36.0-66.0); Poikilocytosis 1+; Total Cells Counted 100; Toxic Granulation 2+
[2020-11-05 14:40] LABS: Hypochromia 1+; Platelet Estimate NORMAL (NORMAL)
[2020-11-05] MEDS: Levofloxacin 500MG/100ML D5W 500 MG/100 ML BAG IV SCH (16:46)
[2020-11-05] MEDS: ENOXAPARIN SODIUM SQ SCH (18:42)
[2020-11-06] MEDS: Hydromorphone 1 mg/ml Injection IV PRN ×2 (02:27→07:59)
[2020-11-06] MEDS: FLAGYL 500 MG IVPB 500 MG/100 ML BAG IV SCH ×4 (05:08→23:05)
[2020-11-06 06:11] LABS: Absolute Neutrophil Ct (ANC) 4.97 (1.4-6.9); Basophil (Absolute #) 0 (0-0.4); Eosinophil % 0.5 % (0.00-5.0); Eosinophil (Absolute #) 0.03 (0-0.5); Hematocrit 20.1 % (35-47); Lymphocyte (Absolute #) 0.45 (1.0-4.6); Lymphocytes % 7.6 % (24.0-44.0); Mean Cell Volume 74.4 fl (78-100); Mean Corpuscular Hemoglobin 21.9 pg (26-32); Mean Corpuscular Hgb Concent. 29.4 g/dl (32-36); Monocyte (Absolute #) 0.49 (0.0-1.3); Monocytes % 8.2 % (0.0-12.0); Neutrophil % 83.7 % (36.0-66.0); Platelet Count 299 K/mm3 (150-450); Red Cell Distribution Width 20.6 % (11.5-14.0); White Blood Count 5.9 K/mm3 (4.0-10.5)
[2020-11-06 06:17] LABS: Hemoglobin 5.9 gm/dl (12.0-16.0)
[2020-11-06 06:24] LABS: ANION GAP 4.9 MEQ/L (5-15); BLOOD UREA NITROGEN 12 mg/dL (7-17); CHLORIDE 100 mmol/L (98-107); Calcium 7.4 mg/dL (8.4-10.2); Carbon Dioxide 28 mmol/L (22-30); Creatinine 1 0.84 mg/dL (0.52-1.04); EST GLOMERULAR FILTRATION RATE > 60.0 ML/MIN; Glucose 111 mg/dL (74-106); Potassium 3.1 mmol/L (3.5-5.1); SODIUM 130 mmol/L (137-145)
[2020-11-06] MEDS: Sodium Chloride 0.9% 10 ML FLUSH Syringe IJ SCH ×3 (06:33→21:03)
[2020-11-06 07:28] LABS: CROSS MATCH (PRBC) COMPATIBLE (COMPATIBLE)
[2020-11-06] MEDS ORDERED: Sodium Chloride 0.9% 500 ML 500 ML IV SCH (07:30)
[2020-11-06] MEDS: Morphine PCA 1 MG/ML 30 ML IV PRN (08:54)
[2020-11-06] MEDS: Dextrose 5% -0.45 NaCl 1000 ML 1,000 ML IV SCH (09:04)
[2020-11-06] MEDS: PATIENT OWN MEDICATION PO SCH (10:15)
[2020-11-06] MEDS: D5W/0.45NS W/ 20mEq KCl 1000 ML 1,000 ML IV SCH ×2 (10:40→20:59)
--- NOTE | 2020-11-06 12:31 | PCM.NOTE ---
Date and Time: 11/06/20 1210 Subjective Assessment: Her hgb this morning was 5.9, so she is now receiving the first of 2 units PRBC. no dizziness but hasn't been up; just feeling tired today. She had some pain in the early am (3-4 am), but it improved with pain meds. Not really having abd pain currently. Her throat also feels better. Not passing flatus but can feel movements in her intestines. - Review of Systems Constitutional: No Fever Abdominal/Gastrointestinal: Abdominal Pain Objective Exam General Appearance: no apparent distress, alert Neurologic Exam: oriented x 3, cooperative Skin Exam: normal color, warm, dry, No rash Eye Exam: eyes nml inspection Ears, Nose, Throat Exam: moist mucous membranes Neck Exam: normal inspection Respiratory Exam: normal breath sounds, lungs clear, No crackles/rales, No rhonchi, No wheezing Cardiovascular Exam: regular rate/rhythm, normal heart sounds, No murmur Gastrointestinal/Abdomen Exam: soft, normal bowel sounds, tenderness (diffuse, mild), other (wound/dressing c/d/i. Ostomy pink), No distention Extremity Exam: No pedal edema, No swelling OBJECTIVE DATA Vital Signs: Vital Signs - 24 hr Temp Pulse Resp BP Pulse Ox 11/06/20 09:00 98.0 F 93 H 100/55 96 11/06/20 08:54 97 11/06/20 08:21 96 11/06/20 08:00 90 11/06/20 05:00 98.1 F 87 16 107/55 95 11/06/20 04:00 91 H 11/06/20 00:00 97.7 F 90 14 99/56 98 11/05/20 20:42 98 11/05/20 20:00 97.9 F 92 H 16 114/64 100 11/05/20 19:50 97 H 11/05/20 16:00 101 H Pain Assessment - Last Documented Pain Intensity 6 Pain Scale Used 0-10 Pain Scale Intake and Output: Intake & Output 11/04/20 11/05/20 11/06/20 11/07/20 11:59 11:59 11:59 11:59 Intake Total 4579 599 0254 Output Total 565 449 1846 Balance 700 -154 381 Weight 68.3 kg Lab Results: Lab Results-Last 24 Hours 11/05/20 11/06/20 11/06/20 Range/Units 05:00 06:12 06:12 WBC 5.9 (4.0-10.5) K/mm3 RBC 2.70 L (4.1-5.4) M/mm3 Hgb 5.9 L* D (12.0-16.0) gm/dl Hct 20.1 L (35-47) % MCV 74.4 L (78-100) fl MCH 21.9 L (26-32) pg MCHC 29.4 L (32-36) g/dl RDW 20.6 H (11.5-14.0) % Plt Count 299 D (150-450) K/mm3 Gran % 83.7 H (36.0-66.0) % Eos # (Auto) 0.03 (0-0.5) Absolute Lymphs (auto) 0.45 L (1.0-4.6) Absolute Monos (auto) 0.49 (0.0-1.3) Lymphocytes % 7.6 L (24.0-44.0) % Monocytes % 8.2 (0.0-12.0) % Eosinophils % 0.5 (0.00-5.0) % Basophils % 0.0 (0.0-0.4) % Absolute Granulocytes 4.97 (1.4-6.9) Segmented Neutrophils 85 H (36.0-66.0) % Band Neutrophils 7 H (0.0-2.0) % Lymphocytes (Manual) 5 L (24-44) % Monocytes (Manual) 2 (0.0-12.0) % Basophils (Manual) 1 (0.0-1.0) % Basophils # 0 (0-0.4) Hypochromia 1+ Toxic Granulation 2+ Platelet Estimate NORMAL (NORMAL) RBC Morphology ABNORMAL Poikilocytosis 1+ Anisocytosis 1+ Sodium 130 L (137-145) mmol/L Potassium 3.1 L D (3.5-5.1) mmol/L Chloride 100 (98-107) mmol/L Carbon Dioxide 28 (22-30) mmol/L Anion Gap 4.9 L (5-15) MEQ/L BUN 12 (7-17) mg/dL Creatinine 0.84 (0.52-1.04) mg/dL Estimated GFR > 60.0 ML/MIN Glucose 111 H (74-106) mg/dL Calcium 7.4 L (8.4-10.2) mg/dL Crossmatch (COMPATIBLE) 11/06/20 11/06/20 Range/Units Unknown Unknown WBC (4.0-10.5) K/mm3 RBC (4.1-5.4) M/mm3 Hgb (12.0-16.0) gm/dl Hct (35-47) % MCV (78-100) fl MCH (26-32) pg MCHC (32-36) g/dl RDW (11.5-14.0) % Plt Count (150-450) K/mm3 Gran % (36.0-66.0) % Eos # (Auto) (0-0.5) Absolute Lymphs (auto) (1.0-4.6) Absolute Monos (auto) (0.0-1.3) Lymphocytes % (24.0-44.0) % Monocytes % (0.0-12.0) % Eosinophils % (0.00-5.0) % Basophils % (0.0-0.4) % Absolute Granulocytes (1.4-6.9) Segmented Neutrophils (36.0-66.0) % Band Neutrophils (0.0-2.0) % Lymphocytes (Manual) (24-44) % Monocytes (Manual) (0.0-12.0) % Basophils (Manual) (0.0-1.0) % Basophils # (0-0.4) Hypochromia Toxic Granulation Platelet Estimate (NORMAL) RBC Morphology Poikilocytosis Anisocytosis Sodium (137-145) mmol/L Potassium (3.5-5.1) mmol/L Chloride (98-107) mmol/L Carbon Dioxide (22-30) mmol/L Anion Gap (5-15) MEQ/L BUN (7-17) mg/dL Creatinine (0.52-1.04) mg/dL Estimated GFR ML/MIN Glucose (74-106) mg/dL Calcium (8.4-10.2) mg/dL Crossmatch COMPATIBLE COMPATIBLE (COMPATIBLE) Assessment/Plan (1) S/P colon resection Current Visit: Yes Status: Acute Code(s): Z90.49 - ACQUIRED ABSENCE OF OTHER SPECIFIED PARTS OF DIGESTIVE TRACT (2) Anemia Current Visit: Yes Status: Acute Qualifiers: Anemia type: iron deficiency Iron deficiency anemia type: chronic blood loss Qualified Code(s): D50.0 - Iron deficiency anemia secondary to blood loss (chronic) Assessment & Plan: 2 units PRBC today. Stay in ICU for observation. Code(s): D64.9 - ANEMIA, UNSPECIFIED (3) Crohn disease Current Visit: Yes Status: Chronic Qualifiers: Gastrointestinal tract location: unspecified location Digestive disease complication type: with intestinal obstruction Qualified Code(s): K50.912 - Crohn's disease, unspecified, with intestinal obstruction Code(s): K50.90 - CROHN'S DISEASE, UNSPECIFIED, WITHOUT COMPLICATIONS (4) Hypokalemia Current Visit: Yes Status: Acute Assessment & Plan: mild; adding K+ to her IV fluids. Code(s): E87.6 - HYPOKALEMIA
[2020-11-06] MEDS: Unasyn 3GM / NaCl 100ML 3 GM/100 ML IVPB IV SCH ×3 (12:37→23:05)
[2020-11-06 12:49] LABS: Slide Review 1 YES
[2020-11-06 13:54] LABS: Hematocrit 28.2 % (35-47); Hemoglobin 8.8 gm/dl (12.0-16.0)
[2020-11-06 14:43] LABS: ANION GAP 6.1 MEQ/L (5-15); BLOOD UREA NITROGEN 8 mg/dL (7-17); CHLORIDE 100 mmol/L (98-107); Calcium 7.5 mg/dL (8.4-10.2); Carbon Dioxide 29 mmol/L (22-30); Creatinine 1 0.79 mg/dL (0.52-1.04); EST GLOMERULAR FILTRATION RATE > 60.0 ML/MIN; Glucose 97 mg/dL (74-106); Potassium 3.2 mmol/L (3.5-5.1); SODIUM 132 mmol/L (137-145)
[2020-11-06] MEDS: ENOXAPARIN SODIUM SQ SCH (18:23)
[2020-11-07] MEDS: Morphine PCA 1 MG/ML 30 ML IV PRN ×2 (03:10→21:55)
[2020-11-07] MEDS: D5W/0.45NS W/ 20mEq KCl 1000 ML 1,000 ML IV SCH ×2 (04:14→15:25)
[2020-11-07] MEDS: Sodium Chloride 0.9% 10 ML FLUSH Syringe IJ SCH ×3 (04:15→22:00)
[2020-11-07] MEDS: FLAGYL 500 MG IVPB 500 MG/100 ML BAG IV SCH ×4 (05:23→23:43)
[2020-11-07] MEDS: Unasyn 3GM / NaCl 100ML 3 GM/100 ML IVPB IV SCH ×2 (05:23→14:06)
[2020-11-07 05:49] LABS: BASOPHIL % 0.2 % (0.0-0.4); Basophil (Absolute #) 0.01 (0-0.4); Eosinophil % 1.4 % (0.00-5.0); Eosinophil (Absolute #) 0.08 (0-0.5); Hematocrit 27.2 % (35-47); Hemoglobin 8.5 gm/dl (12.0-16.0); Lymphocyte (Absolute #) 0.42 (1.0-4.6); Lymphocytes % 7.2 % (24.0-44.0); Mean Cell Volume 76.4 fl (78-100); Mean Corpuscular Hemoglobin 23.9 pg (26-32); Mean Corpuscular Hgb Concent. 31.3 g/dl (32-36); Monocyte (Absolute #) 0.41 (0.0-1.3); Neutrophil % 84.2 % (36.0-66.0); Platelet Count 234 K/mm3 (150-450); Red Blood Count 3.56 M/mm3 (4.1-5.4); Red Cell Distribution Width 20.9 % (11.5-14.0); White Blood Count 5.8 K/mm3 (4.0-10.5)
[2020-11-07 06:13] LABS: ANION GAP 6.3 MEQ/L (5-15); BLOOD UREA NITROGEN 4 mg/dL (7-17); CHLORIDE 99 mmol/L (98-107); Calcium 7.5 mg/dL (8.4-10.2); Carbon Dioxide 31 mmol/L (22-30); Creatinine 1 0.72 mg/dL (0.52-1.04); EST GLOMERULAR FILTRATION RATE > 60.0 ML/MIN; Glucose 116 mg/dL (74-106); Potassium 3.1 mmol/L (3.5-5.1); SODIUM 133 mmol/L (137-145)
[2020-11-07 07:57] LABS: Slide Review 1 YES
--- NOTE | 2020-11-07 08:29 | PCM.NOTE ---
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 NG is in place Objective Exam General Appearance: no apparent distress, alert Skin Exam: normal color, warm, dry Respiratory Exam: normal breath sounds, lungs clear, No respiratory distress Cardiovascular Exam: regular rate/rhythm, normal heart sounds Gastrointestinal/Abdomen Exam: other (RC with scant serous fluid, ostomy pink and viable, minimal serous fluid in ostomy bag, no gas present.), No normal bowel sounds Extremity Exam: normal inspection, normal range of motion OBJECTIVE DATA Vital Signs: Vital Signs - 24 hr Temp Pulse Resp BP Pulse Ox 11/07/20 05:51 94 L 11/07/20 03:47 89 11/07/20 03:46 98.5 F 89 19 109/55 93 L 11/07/20 03:10 93 L 11/07/20 00:15 98.9 F 95 H 18 108/54 94 L 11/07/20 00:00 95 H 11/06/20 22:54 93 L 11/06/20 20:54 95 11/06/20 20:16 99.1 F 95 H 13 120/58 97 11/06/20 20:00 92 H 11/06/20 17:00 92 H 120/63 98 11/06/20 16:54 98 11/06/20 16:00 95 H 11/06/20 13:00 98.8 F 95 H 111/68 99 11/06/20 12:54 99 11/06/20 12:00 93 H 11/06/20 09:00 98.0 F 93 H 100/55 96 11/06/20 08:54 97 Pain Assessment - Last Documented Pain Intensity 5 Pain Scale Used 0-10 Pain Scale Intake and Output: Intake & Output 11/04/20 11/05/20 11/06/20 11/07/20 11:59 11:59 11:59 11:59 Intake Total 4845 878 7518 3068 Output Total 052 427 3476 3690 Balance 700 -154 381 -622 Weight 68.3 kg Lab Results: Lab Results-Last 24 Hours 11/06/20 11/06/20 11/06/20 Range/Units 06:12 13:48 14:15 WBC (4.0-10.5) K/mm3 RBC (4.1-5.4) M/mm3 Hgb 8.8 L D (12.0-16.0) gm/dl Hct 28.2 L (35-47) % MCV (78-100) fl MCH (26-32) pg MCHC (32-36) g/dl RDW (11.5-14.0) % Plt Count (150-450) K/mm3 Gran % (36.0-66.0) % Eos # (Auto) (0-0.5) Absolute Lymphs (auto) (1.0-4.6) Absolute Monos (auto) (0.0-1.3) Lymphocytes % (24.0-44.0) % Monocytes % (0.0-12.0) % Eosinophils % (0.00-5.0) % Basophils % (0.0-0.4) % Absolute Granulocytes (1.4-6.9) Basophils # (0-0.4) Sodium 132 L (137-145) mmol/L Potassium 3.2 L (3.5-5.1) mmol/L Chloride 100 (98-107) mmol/L Carbon Dioxide 29 (22-30) mmol/L Anion Gap 6.1 (5-15) MEQ/L BUN 8 (7-17) mg/dL Creatinine 0.79 (0.52-1.04) mg/dL Estimated GFR > 60.0 ML/MIN Glucose 97 (74-106) mg/dL Calcium 7.5 L (8.4-10.2) mg/dL Slides for Path Review YES 11/07/20 11/07/20 Range/Units 04:30 04:30 WBC 5.8 (4.0-10.5) K/mm3 RBC 3.56 L (4.1-5.4) M/mm3 Hgb 8.5 L (12.0-16.0) gm/dl Hct 27.2 L (35-47) % MCV 76.4 L (78-100) fl MCH 23.9 L (26-32) pg MCHC 31.3 L (32-36) g/dl RDW 20.9 H (11.5-14.0) % Plt Count 234 (150-450) K/mm3 Gran % 84.2 H (36.0-66.0) % Eos # (Auto) 0.08 (0-0.5) Absolute Lymphs (auto) 0.42 L (1.0-4.6) Absolute Monos (auto) 0.41 (0.0-1.3) Lymphocytes % 7.2 L (24.0-44.0) % Monocytes % 7.0 (0.0-12.0) % Eosinophils % 1.4 (0.00-5.0) % Basophils % 0.2 (0.0-0.4) % Absolute Granulocytes 4.90 (1.4-6.9) Basophils # 0.01 (0-0.4) Sodium 133 L (137-145) mmol/L Potassium 3.1 L (3.5-5.1) mmol/L Chloride 99 (98-107) mmol/L Carbon Dioxide 31 H (22-30) mmol/L Anion Gap 6.3 (5-15) MEQ/L BUN 4 L (7-17) mg/dL Creatinine 0.72 (0.52-1.04) mg/dL Estimated GFR > 60.0 ML/MIN Glucose 116 H (74-106) mg/dL Calcium 7.5 L (8.4-10.2) mg/dL Slides for Path Review YES Assessment/Plan (1) S/P colon resection Current Visit: Yes Status: Acute Assessment & Plan: appreciate surgery management, no changes today. Code(s): Z90.49 - ACQUIRED ABSENCE OF OTHER SPECIFIED PARTS OF DIGESTIVE TRACT (2) Partial obstruction of small intestine Current Visit: Yes Status: Acute Code(s): K56.600 - PARTIAL INTESTINAL OBST RUCTION, UNSPECIFIED TO CAUSE (3) Crohns disease of small intestine Current Visit: Yes Status: Acute Code(s): K50.00 - CROHN'S DISEASE OF SMALL INTESTINE WITHOUT COMPLICATIONS (4) Hypokalemia Current Visit: Yes Status: Acute Assessment & Plan: potassium is low in spite of supplementing in fluids, patient has NG so will give 40meq IV K rider Code(s): E87.6 - HYPOKALEMIA
[2020-11-07] MEDS: Sodium Chloride 0.9% 500 ML 500 ML IV SCH ×2 (09:22→21:22)
[2020-11-07] MEDS: POTASSIUM CHLORIDE 20 mEq IN WATER 100ML 20 MEQ/100 ML BAG IV SCH ×2 (09:25→11:04)
--- NOTE | 2020-11-07 12:21 | OP ---
SURGERY DATE/TIME: 11/04/2020 0521 PREOPERATIVE DIAGNOSIS: Small bowel obstruction with stricture with failure for medical therapy with failure of very substantial aggressive long-term and short-term medical therapy. POSTOPERATIVE DIAGNOSIS: Small bowel obstruction with stricture with failure for medical therapy with failure of very substantial aggressive long-term and short-term medical therapy. PROCEDURES: 1) Exploratory laparotomy with: A) A one hour adhesiolysis. B) Ortiz procedure with end sigmoid colostomy and partial resection of sigmoid and rectal stump stapling. C) Right hemicolectomy with primary anastomosis. D) Urinary bladder cystorrhaphy E) Greater than one hour adhesiolysis of small bowel, large bowel and abdominal surfaces. SURGEON: Mychal Swain M.D. PICKER TENDER HELPER: Jodie Swain M.D. SECOND BRIDGE OPERATOR SLIP: Ember Barron NP. ANESTHESIA: General. ESTIMATED BLOOD LOSS: 1,000 cc. DRAINS: Two. Two pelvic Greg Lynch, one Cortez, one NG. RESUSCITATIVE FLUID: 5 liters. ADDITIONAL AGENTS: 250 cc of methylene blue diluted fluid to check for leak. INDICATION: The patient has had Crohn's for 12 years, diagnosed with Dr. Rachel pruitt concrete about 12 years ago. She got started on medications. She got started on a biologic and really did not have much response, subsequently got changed to Imuran and had a good response, did well for years. She has been seen by GI and tailored on and off medicine for some time. About 14 months ago she had exacerbation. She had multiple tests. She had an MRI showing a stricture. She got placed on IV biologic for a year. About four to six weeks ago she started to fail, seemed more pronounced, more obstipation, nausea, bloating, intermittent diarrhea. It progressed to total failure. She was admitted to the hospital. She has had a recent dose of steroids started. She is seen and examined at the bedside evening and options discussed with her. She wished to go ahead with surgical intervention. DESCRIPTION OF PROCEDURE: She was taken to surgery Saturday evening. Midline she had no previous explorations and midline centered slightly lower on the umbilicus was performed. There were not adhesions against the anterior abdominal wall but there were adhesions totally against the pelvic wall, pelvic structures, uterus, bladder, left and right side jenkins, small bowel, colon, cecum and sigmoid were all matted together in one ball in the lower abdomen. If you tatiana a line about 1 inch below the umbilicus everything above this was totally free and everything below this was totally agglutinated and frozen. With care and patience with a little over an hour the dissection got down to about four areas in the pelvis with the colon stuck to the small bowel. The colon and small bowel area stuck to the bladder. Another area of small bowel was stuck to the bladder. The cecum stuck to the bladder. Dr. Jodie Swain did request to assist. There was also a free plane behind the small bowel mesentery at this time with a inch drain being placed there and the posterior aspect of the field was clear at this time. The field was basically down to the very spot welded adhesions. Of interest at the beginning of the case where the Cortez was placed, she had absolutely stool in her urine this had really not been noticed preoperatively. She has had some renal insufficiency which had been discussed with her. Her creatinine was up to 1.7. She really never had this. She said she had it from dehydration once two years ago for a scope but otherwise nothing. This urine was absolutely telling in the fact there should be a colovesical fistula. The uterus, tubes and ovaries had been able to be from the specimen. At this time with Dr. Jodie Swain assisting, these residual connections were taken down. 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 The sigmoid colon was tried to be preserved up until the very last maneuver and as this was taken down it was clear that there was actually both a stricture of the sigmoid colon and a fistula of the sigmoid colon. The fistula was both to the small bowel and to the bladder. This narrowed the sigmoid enough and was significant enough inflamed area that there looked like there was no question that a colostomy was close to mandatory. Ten inches of the small bowel was resected. There was very clear transition, 5 inches of the cecum-right colon was transected this also had a very clear transition. The mesentery was then taken between ligature and stick ties of 2-0 PDS. Specimen delivered off the table. The portion of the sigmoid with the stricture and fistula was about 3 inches was resected. It was stapled distally with a contour stapler and MAUREEN proximally. Mesentery taken with ligature. We were clearly off the left ureter and on review of the right side the retroperitoneum where the right ureter had not been violated. There was an old internal fistula tract remnant at the base of the small bowel going into the area of the small bowel that had been initially resected with the right hemicolectomy. About two more inches of small bowel was taken at this time. Grossly the GI tract was totally clean at this time. Right colon at mid ascending colon staple line totally clear above this across the hepatic, transverse, splenic, descending fairly redundant sigmoid. A small portion of the sigmoid had been taken. A little bit of sigmoid was mobilized for colostomy at this time. It looks like there was no issue there at all. The rectal stump was satisfactory. The mesenteric root was satisfactory. Both left and right ureter planes were satisfactory. Blood loss had been 1,000 cc. The field was dry. The right colon, ileocolic [id number] natural orientation was performed with MAUREEN followed by contour looked excellent. Mesentery defect approximated with running 3-0 PDS. The small bowel was run from ligament of Treitz to the colon and was normal. Now inspecting in the urinary tract. Methylene blue 200 cc was initially injected. There was a reina leak. I think we can place the whole suction tip basically in this leak. It was repaired with five primary full thickness stitches of 2-0 PDS which were all placed and all deliberately tied down. Another injection at 50 cc additionally did not leak any. Cortez was left in place. Two pelvic drains were placed, one behind the uterus and one slightly towards the more upper edge of the uterus. The left sigmoid end was then brought out through a circular incision a crucial fascial incision and it was tacked with sutures 3-0 PDS. Anterior abdominal wall closed with loop 0 PDS. Subcutaneous tissues irrigated. Skin closed with justin and teresa. The ostomy was matured. The patient tolerated the procedure with a least 5 liters of crystalloid, hemoglobin in the 7 range, a 1,000 cc blood loss, a nasogastric tube, Cortez catheter, two Greg- Lynch drains, a colostomy and teresa in the incision. She was sent to the ICU. A reina discussion with the for about 15 minutes including some pictures of the pathology that was on the back table.
[2020-11-07] MEDS: Unasyn 3 GM Vial*** 3 G in Sodium Chloride 100ML MINI-BAG PLUS 100 ML IV SCH ×2 (13:48→19:37)
[2020-11-07] MEDS: Levaquin 250MG/50ML D5W 250 MG/50 ML BAG IV SCH (16:34)
[2020-11-07] MEDS: ENOXAPARIN SODIUM SQ SCH (20:06)
[2020-11-07] MEDS: Pepcid 20 MG VIAL IV SCH (20:41)
[2020-11-08] MEDS: Unasyn 3 GM Vial*** 3 G in Sodium Chloride 100ML MINI-BAG PLUS 100 ML IV SCH ×4 (00:26→17:26)
[2020-11-08] MEDS: D5W/0.45NS W/ 20mEq KCl 1000 ML 1,000 ML IV SCH ×2 (02:31→12:28)
[2020-11-08 05:01] LABS: Absolute Neutrophil Ct (ANC) 5.43 (1.4-6.9); BASOPHIL % 0.3 % (0.0-0.4); Basophil (Absolute #) 0.02 (0-0.4); Eosinophil % 2.5 % (0.00-5.0); Eosinophil (Absolute #) 0.16 (0-0.5); Hematocrit 28.3 % (35-47); Hemoglobin 8.7 gm/dl (12.0-16.0); Lymphocyte (Absolute #) 0.46 (1.0-4.6); Lymphocytes % 7.1 % (24.0-44.0); Mean Cell Volume 75.9 fl (78-100); Mean Corpuscular Hemoglobin 23.3 pg (26-32); Mean Corpuscular Hgb Concent. 30.7 g/dl (32-36); Monocyte (Absolute #) 0.44 (0.0-1.3); Monocytes % 6.8 % (0.0-12.0); Neutrophil % 83.3 % (36.0-66.0); Platelet Count 290 K/mm3 (150-450); Red Blood Count 3.73 M/mm3 (4.1-5.4); Red Cell Distribution Width 21.2 % (11.5-14.0); White Blood Count 6.5 K/mm3 (4.0-10.5)
[2020-11-08 05:17] LABS: ANION GAP 6.5 MEQ/L (5-15); BLOOD UREA NITROGEN 4 mg/dL (7-17); CHLORIDE 97 mmol/L (98-107); Calcium 7.7 mg/dL (8.4-10.2); Carbon Dioxide 30 mmol/L (22-30); Creatinine 1 0.66 mg/dL (0.52-1.04); EST GLOMERULAR FILTRATION RATE > 60.0 ML/MIN; Glucose 128 mg/dL (74-106); Potassium 3.6 mmol/L (3.5-5.1); SODIUM 129 mmol/L (137-145)
[2020-11-08] MEDS ORDERED: D50W 50 ml Abboject IV ONE (05:33)
[2020-11-08] MEDS: FLAGYL 500 MG IVPB 500 MG/100 ML BAG IV SCH ×3 (06:30→18:12)
[2020-11-08] MEDS: Sodium Chloride 0.9% 10 ML FLUSH Syringe IJ SCH ×3 (06:30→21:45)
[2020-11-08 06:56] LABS: Slide Review 1 YES
[2020-11-08] MEDS: Levaquin 250MG/50ML D5W 250 MG/50 ML BAG IV SCH (09:33)
[2020-11-08] MEDS: Pepcid 20 MG VIAL IV SCH (09:33)
--- NOTE | 2020-11-08 09:39 | PCM.NOTE ---
Date and Time: 11/08/2037 Subjective Assessment: patient is more comfortable today, slept well overnight. only had around 100mL output from NG since yesterday. no gas in ostomy bag. Objective Exam General Appearance: no apparent distress, alert Wound Assessment: Skin/Wound Assessment Wound/Incision Assessment Start: 11/08/20 08:29 Text: Status: Active Freq: Q6H Protocol: Document 11/08/20 08:29 AWG (Rec: 11/08/20 08:40 AWG [id number]) Wound/Incision Assessment Anterior Abdomen Wound Type Incision Dressing Status Dry & Intact,Changed Drainage Amount Minimal Drainage Description from drains, dressing c/d/i Drainage Odor None/Absent General Appearance [place] Intact,Clean/Dry Respiratory Exam: normal breath sounds, lungs clear, No respiratory distress Cardiovascular Exam: regular rate/rhythm, normal heart sounds Gastrointestinal/Abdomen Exam: soft, other (ostomy pink and viable, clear output scant in RC and ostomy bag), No normal bowel sounds Extremity Exam: normal inspection, normal range of motion OBJECTIVE DATA Vital Signs: Vital Signs - 24 hr Temp Pulse Resp BP Pulse Ox 11/08/20 08:00 85 11/08/20 07:44 97.4 F 86 18 113/66 96 11/08/20 06:41 95 11/08/20 04:00 97.9 F 92 H 21 129/66 94 L 11/08/20 00:00 97 11/07/20 23:51 98.0 F 89 18 112/59 97 11/07/20 21:55 96 11/07/20 20:03 96 11/07/20 20:00 98.4 F 97 H 24 132/62 97 11/07/20 16:00 89 11/07/20 15:00 62 17 92 L 11/07/20 12:00 96 H 11/07/20 11:00 98.6 F 86 17 132/63 95 Pain Assessment - Last Documented Pain Intensity 5 Pain Scale Used 0-10 Pain Scale Intake and Output: Intake & Output 11/05/20 11/06/20 11/07/20 11/08/20 11:59 11:59 11:59 11:59 Intake Total 764 6341 3063 3708 Output Total 371 3564 8302 2384 Balance -154 116 -018 -1858 Weight 68.3 kg Lab Results: Lab Results-Last 24 Hours 11/07/20 11/08/20 11/08/20 Range/Units 15:40 04:28 04:28 WBC 6.5 (4.0-10.5) K/mm3 RBC 3.73 L (4.1-5.4) M/mm3 Hgb 8.7 L (12.0-16.0) gm/dl Hct 28.3 L (35-47) % MCV 75.9 L (78-100) fl MCH 23.3 L (26-32) pg MCHC 30.7 L (32-36) g/dl RDW 21.2 H (11.5-14.0) % Plt Count 290 (150-450) K/mm3 Gran % 83.3 H (36.0-66.0) % Eos # (Auto) 0.16 (0-0.5) Absolute Lymphs (auto) 0.46 L (1.0-4.6) Absolute Monos (auto) 0.44 (0.0-1.3) Lymphocytes % 7.1 L (24.0-44.0) % Monocytes % 6.8 (0.0-12.0) % Eosinophils % 2.5 (0.00-5.0) % Basophils % 0.3 (0.0-0.4) % Absolute Granulocytes 5.43 (1.4-6.9) Basophils # 0.02 (0-0.4) Sodium 129 L (137-145) mmol/L Potassium 3.7 3.6 (3.5-5.1) mmol/L Chloride 97 L (98-107) mmol/L Carbon Dioxide 30 (22-30) mmol/L Anion Gap 6.5 (5-15) MEQ/L BUN 4 L (7-17) mg/dL Creatinine 0.66 (0.52-1.04) mg/dL Estimated GFR > 60.0 ML/MIN Glucose 128 H (74-106) mg/dL Calcium 7.7 L (8.4-10.2) mg/dL Slides for Path Review YES Assessment/Plan (1) S/P colon resection Current Visit: Yes Status: Acute Code(s): Z90.49 - ACQUIRED ABSENCE OF OTHER SPECIFIED PARTS OF DIGESTIVE TRACT (2) Partial obstruction of small intestine Current Visit: Yes Status: Acute Code(s): K56.600 - PARTIAL INTESTINAL OBSTRUCTION, UNSPECIFIED TO CAUSE (3) Crohns disease of small intestine Current Visit: Yes Status: Acute Code(s): K50.00 - CROHN'S DISEASE OF SMALL INTESTINE WITHOUT COMPLICATIONS (4) Hypokalemia Current Visit: Yes Status: Acute Assessment & Plan: replaced, changing from 1/2ns to ns today based on mild hyponatremia. will follow humberto Code(s): E87.6 - HYPOKALEMIA
[2020-11-08] MEDS: DEXTROSE 5% -NACL 0.9% 1000 ML + KCl 20 MEQ 1,000 ML IV SCH ×2 (11:20→20:16)
--- NOTE | 2020-11-08 11:20 | PCM.DCORD ---
- Discharge Disposition: Home, Self-Care Condition: Stable Prescriptions: New Hydrocodone/Acetaminophen [Hydrocodone-Acetamin 5-325 mg] 1 tab PO Q6HPRN PRN #20 tablet MDD 4 PRN Reason: Pain No Action Azathioprine [Imuran] 150 mg PO TID Ferrous Sulfate [Iron] 325 mg PO DAILY Prednisone 20 mg [Deltasone 20 mg] 40 mg PO DAILY Follow up with: BRITTNEY RODRIGUEZ MD [Primary Care Provider] - NBA HARDING [ACTIVE STAFF] -
[2020-11-08] MEDS: ENOXAPARIN SODIUM SQ SCH (18:12)
[2020-11-08] MEDS: Morphine PCA 1 MG/ML 30 ML IV PRN (20:34)
[2020-11-09] MEDS: FLAGYL 500 MG IVPB 500 MG/100 ML BAG IV SCH ×5 (01:46→23:13)
[2020-11-09] MEDS: Unasyn 3 GM Vial*** 3 G in Sodium Chloride 100ML MINI-BAG PLUS 100 ML IV SCH ×5 (01:46→23:45)
[2020-11-09] MEDS: DEXTROSE 5% -NACL 0.9% 1000 ML + KCl 20 MEQ 1,000 ML IV SCH ×3 (02:16→23:14)
[2020-11-09] MEDS: Sodium Chloride 0.9% 10 ML FLUSH Syringe IJ SCH ×3 (04:23→23:29)
[2020-11-09 05:36] LABS: BASOPHIL % 0.3 % (0.0-0.4); Basophil (Absolute #) 0.02 (0-0.4); Eosinophil % 2.5 % (0.00-5.0); Eosinophil (Absolute #) 0.15 (0-0.5); Hemoglobin 8.6 gm/dl (12.0-16.0); Lymphocyte (Absolute #) 0.44 (1.0-4.6); Lymphocytes % 7.4 % (24.0-44.0); Mean Cell Volume 76.1 fl (78-100); Mean Corpuscular Hemoglobin 23.4 pg (26-32); Mean Corpuscular Hgb Concent. 30.7 g/dl (32-36); Monocyte (Absolute #) 0.47 (0.0-1.3); Monocytes % 7.9 % (0.0-12.0); Neutrophil % 81.9 % (36.0-66.0); Platelet Count 281 K/mm3 (150-450); Red Blood Count 3.68 M/mm3 (4.1-5.4); Red Cell Distribution Width 21.6 % (11.5-14.0)
[2020-11-09 06:15] LABS: BLOOD UREA NITROGEN 3 mg/dL (7-17); CHLORIDE 101 mmol/L (98-107); Calcium 7.9 mg/dL (8.4-10.2); Carbon Dioxide 30 mmol/L (22-30); Creatinine 1 0.77 mg/dL (0.52-1.04); EST GLOMERULAR FILTRATION RATE > 60.0 ML/MIN; Glucose 132 mg/dL (74-106); Potassium 3.6 mmol/L (3.5-5.1); SODIUM 132 mmol/L (137-145)
[2020-11-09 07:17] LABS: Slide Review 1 YES
--- NOTE | 2020-11-09 08:56 | PCM.NOTE ---
Date and Time: 11/09/20853 Subjective Assessment: patient reports she rested well overnight, ng has been intermittently clamped, has some air in ostomy bag. pain is well controlled Objective Exam General Appearance: no apparent distress, alert Wound Assessment: Skin/Wound Assessment Wound/Incision Assessment Start: 11/08/20 08:29 Text: Status: Active Freq: Q6H Protocol: Document 11/09/20 02:00 VL (Rec: 11/09/20 02:07 [id number]) Wound/Incision Assessment Anterior Abdomen Wound Assessment Shift Assessment Wound Type Incision Dressing Status Dry & Intact,Changed Drainage Amount Minimal Drainage Description from drains, dressing c/d/i Drainage Odor None/Absent General Appearance Clean/Dry Wound Photo Photo Taken No Respiratory Exam: normal breath sounds, lungs clear, No respiratory distress Cardiovascular Exam: regular rate/rhythm, normal heart sounds Gastrointestinal/Abdomen Exam: soft, other (air in ostomy, ostomy pink and viable), No normal bowel sounds, No distention Extremity Exam: normal inspection, normal range of motion OBJECTIVE DATA Vital Signs: Vital Signs - 24 hr Temp Pulse Resp BP Pulse Ox 11/09/20 04:00 15 F 81 15 122/63 96 11/09/20 00:34 95 11/09/20 00:00 82 13 114/62 95 11/08/20 20:34 94 L 11/08/20 20:00 98.2 F 87 21 119/66 94 L 11/08/20 19:54 98.2 F 87 21 119/66 94 L 11/08/20 16:24 88 20 131/72 99 11/08/20 16:00 97.4 F 88 131/72 94 L 11/08/20 12:00 97 11/08/20 11:59 90 11/08/20 11:30 90 17 117/67 96 Pain Assessment - Last Documented Pain Intensity 0 Pain Scale Used 0-10 Pain Scale Intake and Output: Intake & Output 11/06/20 11/07/20 11/08/20 11/09/20 11:59 11:59 11:59 11:59 Intake Total 3011 3062 4673 8720 Output Total 3979 3434 2658 2336 Balance 127 -457 -6732 504 Weight 68.3 kg Lab Results: Lab Results-Last 24 Hours 11/04/20 11/09/20 11/09/20 Range/Units 20:50 04:20 04:20 WBC 6.0 (4.0-10.5) K/mm3 RBC 3.68 L (4.1-5.4) M/mm3 Hgb 8.6 L (12.0-16.0) gm/dl Hct 28.0 L (35-47) % MCV 76.1 L (78-100) fl MCH 23.4 L (26-32) pg MCHC 30.7 L (32-36) g/dl RDW 21.6 H (11.5-14.0) % Plt Count 281 (150-450) K/mm3 Gran % 81.9 H (36.0-66.0) % Eos # (Auto) 0.15 (0-0.5) Absolute Lymphs (auto) 0.44 L (1.0-4.6) Absolute Monos (auto) 0.47 (0.0-1.3) Lymphocytes % 7.4 L (24.0-44.0) % Monocytes % 7.9 (0.0-12.0) % Eosinophils % 2.5 (0.00-5.0) % Basophils % 0.3 (0.0-0.4) % Absolute Granulocytes 4.90 (1.4-6.9) Basophils # 0.02 (0-0.4) Sodium 132 L (137-145) mmol/L Potassium 3.6 (3.5-5.1) mmol/L Chloride 101 (98-107) mmol/L Carbon Dioxide 30 (22-30) mmol/L Anion Gap 5.0 (5-15) MEQ/L BUN 3 L (7-17) mg/dL Creatinine 0.77 (0.52-1.04) mg/dL Estimated GFR > 60.0 ML/MIN Glucose 132 H (74-106) mg/dL Calcium 7.9 L (8.4-10.2) mg/dL Surg PTH Diagnosis See Note H Slides for Path Review YES Multi-Disciplinary Progress Notes: Multi-Disciplinary Progress Notes 11/08/20 16:00 Case Management Note by Dawna Chairez INDEPENDENT WITH ALL ADL'S. NO NEEDS IDENTIFIED AT PRESENT. WILL CONTINUE TO FOLLOW FOR ALL DC NEEDS. Initialized on 11/08/20 16:00 - END OF NOTE Assessment/Plan (1) S/P colon resection Current Visit: Yes Status: Acute Code(s): Z90.49 - ACQUIRED ABSENCE OF OTHER SPECIFIED PARTS OF DIGESTIVE TRACT (2) Partial obstruction of small intestine Current Visit: Yes Status: Acute Code(s): K56.600 - PARTIAL INTESTINAL OBSTRUCTION, UNSPECIFIED TO CAUSE (3) Crohns disease of small intestine Current Visit: Yes Status: Acute Code(s): K50.00 - CROHN'S DISEASE OF SMALL INTESTINE WITHOUT COMPLICATIONS (4) Hypokalemia Current Visit: Yes Status: Acute Code(s): E87.6 - HYPOKALEMIA
[2020-11-09] MEDS: Levaquin 250MG/50ML D5W 250 MG/50 ML BAG IV SCH (09:31)
[2020-11-09] MEDS: Pepcid 20 MG VIAL IV SCH (09:58)
[2020-11-09] MEDS: TYLENOL 325 MG PO PRN ×2 (17:04→23:16)
[2020-11-09] MEDS: ENOXAPARIN SODIUM SQ SCH (18:07)
[2020-11-10] MEDS: FLAGYL 500 MG IVPB 500 MG/100 ML BAG IV SCH ×3 (05:04→17:55)
[2020-11-10] MEDS: Unasyn 3 GM Vial*** 3 G in Sodium Chloride 100ML MINI-BAG PLUS 100 ML IV SCH ×3 (05:05→18:45)
[2020-11-10] MEDS: Sodium Chloride 0.9% 10 ML FLUSH Syringe IJ SCH ×3 (05:05→22:28)
[2020-11-10] MEDS: DEXTROSE 5% -NACL 0.9% 1000 ML + KCl 20 MEQ 1,000 ML IV SCH ×3 (05:21→22:25)
[2020-11-10 05:46] LABS: Absolute Neutrophil Ct (ANC) 4.33 (1.4-6.9); BASOPHIL % 0.7 % (0.0-0.4); Basophil (Absolute #) 0.04 (0-0.4); Eosinophil % 3.3 % (0.00-5.0); Eosinophil (Absolute #) 0.18 (0-0.5); Hematocrit 27.9 % (35-47); Hemoglobin 8.6 gm/dl (12.0-16.0); Lymphocyte (Absolute #) 0.41 (1.0-4.6); Lymphocytes % 7.5 % (24.0-44.0); Mean Cell Volume 76.2 fl (78-100); Mean Corpuscular Hemoglobin 23.5 pg (26-32); Mean Corpuscular Hgb Concent. 30.8 g/dl (32-36); Monocyte (Absolute #) 0.49 (0.0-1.3); Neutrophil % 79.5 % (36.0-66.0); Platelet Count 320 K/mm3 (150-450); Red Blood Count 3.66 M/mm3 (4.1-5.4); White Blood Count 5.5 K/mm3 (4.0-10.5)
[2020-11-10 08:15] LABS: ANION GAP 8.8 MEQ/L (5-15); BLOOD UREA NITROGEN 4 mg/dL (7-17); CHLORIDE 106 mmol/L (98-107); Calcium 7.9 mg/dL (8.4-10.2); Carbon Dioxide 25 mmol/L (22-30); Creatinine 1 0.77 mg/dL (0.52-1.04); EST GLOMERULAR FILTRATION RATE > 60.0 ML/MIN; Glucose 119 mg/dL (74-106); Potassium 3.7 mmol/L (3.5-5.1); SODIUM 136 mmol/L (137-145)
--- NOTE | 2020-11-10 08:23 | PCM.NOTE ---
Date and Time: 11/10/20819 Subjective Assessment: NG is out and patient is tolerating clears, more gas in ostomy with some liquid output. she is ambulating and overall feeling better. Objective Exam General Appearance: no apparent distress, alert Wound Assessment: Skin/Wound Assessment Wound/Incision Assessment Start: 11/08/20 08:29 Text: Status: Active Freq: Q6H Protocol: Document 11/10/20 07:58 RN (Rec: 11/10/20 08:03 RN [id number]) Wound/Incision Assessment Anterior Abdomen Wound Assessment Shift Assessment Wound Type Incision Wound Stage Non Pressure Wound Dressing Status Dry & Intact Drainage Amount None Drainage Description from drains, dressing c/d/i Drainage Odor None/Absent General Appearance Clean/Dry Primary Dressing Gauze Pads Comment Drain sponges around RC drains , telfa island on incisional line. Wound Photo Photo Taken No Respiratory Exam: normal breath sounds, lungs clear, No respiratory distress Cardiovascular Exam: regular rate/rhythm, normal heart sounds Gastrointestinal/Abdomen Exam: soft, normal bowel sounds (present but decreased, ostomy pink and viable, dressings c/d/i) Extremity Exam: normal inspection, normal range of motion OBJECTIVE DATA Vital Signs: Vital Signs - 24 hr Temp Pulse Resp BP Pulse Ox 11/10/20 07:37 97.9 F 82 16 119/57 98 11/10/20 04:00 97.8 F 78 17 115/59 98 11/09/20 23:47 98.2 F 83 18 120/58 96 11/09/20 19:46 98.2 F 82 24 105/53 99 11/09/20 19:30 100 11/09/20 16:00 98.3 F 83 16 108/53 96 11/09/20 12:00 98.0 F 84 18 108/53 84 L 11/09/20 11:51 97 Pain Assessment - Last Documented Pain Intensity 0 Pain Scale Used 0-10 Pain Scale Intake and Output: Intake & Output 11/07/20 11/08/20 11/09/20 11/10/20 11:59 11:59 11:59 11:59 Intake Total 3064 5153 2834 3333 Output Total 2253 1676 9782 5756 [facility] -622 -2023 -146 639 Weight 68.3 kg Lab Results: Lab Results-Last 24 Hours 11/10/20 11/10/20 Range/Units 04:40 04:40 WBC 5.5 (4.0-10.5) K/mm3 RBC 3.66 L (4.1-5.4) M/mm3 Hgb 8.6 L (12.0-16.0) gm/dl Hct 27.9 L (35-47) % MCV 76.2 L (78-100) fl MCH 23.5 L (26-32) pg MCHC 30.8 L (32-36) g/dl RDW 22.0 H (11.5-14.0) % Plt Count 320 (150-450) K/mm3 Gran % 79.5 H (36.0-66.0) % Eos # (Auto) 0.18 (0-0.5) Absolute Lymphs (auto) 0.41 L (1.0-4.6) Absolute Monos (auto) 0.49 (0.0-1.3) Lymphocytes % 7.5 L (24.0-44.0) % Monocytes % 9.0 (0.0-12.0) % Eosinophils % 3.3 (0.00-5.0) % Basophils % 0.7 (0.0-0.4) % Absolute Granulocytes 4.33 (1.4-6.9) Basophils # 0.04 (0-0.4) Sodium 136 L (137-145) mmol/L Potassium 3.7 (3.5-5.1) mmol/L Chloride 106 (98-107) mmol/L Carbon Dioxide 25 (22-30) mmol/L Anion Gap 8.8 (5-15) MEQ/L BUN 4 L (7-17) mg/dL Creatinine 0.77 (0.52-1.04) mg/dL Estimated GFR > 60.0 ML/MIN Glucose 119 H (74-106) mg/dL Calcium 7.9 L (8.4-10.2) mg/dL Multi-Disciplinary Progress Notes: Multi-Disciplinary Progress Notes 11/09/20 11:28 Case Management Note by Dawna Chairez CONTINUE TO MONITOR DAILY FOR DC NEEDS. PT IS INDEPENDENT, AT HOME, NO NEEDS IDENTIFIED AT PRESENT TIME. WILL FOLLOW. Initialized on 11/09/20 11:28 - END OF NOTE 11/09/20 09:43 Nutrition Note by Kailyn Finch F/u Note: Note pt remains NPO x 6 days. adm weight 68.3kg; current weight 68.3kg. Labs 5/5 = Na 132, BUN 3, glu 132, hgb 8.6, hct 28.0, mcv 76.1. goal of no weight loss met and ongoing. Recommend to resume po feeding or begin alt feeding method. Will monitor and f/u prn. ELIZABETH Byrne Initialized on 11/09/20 09:43 - END OF NOTE Assessment/Plan (1) S/P colon resection Current Visit: Yes Status: Acute Assessment & Plan: progressing well Code(s): Z90.49 - ACQUIRED ABSENCE OF OTHER SPECIFIED PARTS OF DIGESTIVE TRACT (2) Partial obstruction of small intestine Current Visit: Yes Status: Acute Code(s): K56.600 - PARTIAL INTESTINAL OBSTRUCTION, UNSPECIFIED TO CAUSE (3) Crohns disease of small intestine Current Visit: Yes Status: Acute Code(s): K50.00 - CROHN'S DISEASE OF SMALL INTESTINE WITHOUT COMPLICATIONS (4) Hypokalemia Current Visit: Yes Status: Acute Code(s): E87.6 - HYPOKALEMIA (5) UTI (urinary tract infection) Current Visit: Yes Status: Acute Assessment & Plan: day 4 of levaquin, will d/c after tomorrow. Code(s): N39.0 - URINARY TRACT INFECTION, SITE NOT SPECIFIED
[2020-11-10] MEDS: Morphine PCA 1 MG/ML 30 ML IV PRN ×2 (08:31→10:42)
[2020-11-10] MEDS: Levaquin 250MG/50ML D5W 250 MG/50 ML BAG IV SCH (09:20)
[2020-11-10] MEDS: Pepcid 20 MG VIAL IV SCH (09:20)
[2020-11-10 09:49] LABS: Slide Review 1 YES
[2020-11-10] MEDS: Zofran 4 MG/2 ML VIAL IV PRN (11:32)
[2020-11-10] MEDS: HYDROCODONE-ACETAMIN 10-325 MG PO PRN (13:16)
[2020-11-10] MEDS: ENOXAPARIN SODIUM SQ SCH (18:45)
[2020-11-11] MEDS: Unasyn 3 GM Vial*** 3 G in Sodium Chloride 100ML MINI-BAG PLUS 100 ML IV SCH ×3 (00:12→12:39)
[2020-11-11] MEDS: FLAGYL 500 MG IVPB 500 MG/100 ML BAG IV SCH ×3 (00:13→11:42)
[2020-11-11] MEDS: HYDROCODONE-ACETAMIN 10-325 MG PO PRN ×2 (00:15→17:14)
[2020-11-11] MEDS: DEXTROSE 5% -NACL 0.9% 1000 ML + KCl 20 MEQ 1,000 ML IV SCH ×2 (05:28→07:19)
[2020-11-11] MEDS: Sodium Chloride 0.9% 10 ML FLUSH Syringe IJ SCH ×2 (05:29→12:39)
[2020-11-11 05:53] LABS: Absolute Neutrophil Ct (ANC) 4.04 (1.4-6.9); BASOPHIL % 0.5 % (0.0-0.4); Basophil (Absolute #) 0.03 (0-0.4); Eosinophil % 5.3 % (0.00-5.0); Eosinophil (Absolute #) 0.29 (0-0.5); Hematocrit 26.7 % (35-47); Hemoglobin 8.2 gm/dl (12.0-16.0); Lymphocyte (Absolute #) 0.55 (1.0-4.6); Mean Cell Volume 77.2 fl (78-100); Mean Corpuscular Hemoglobin 23.7 pg (26-32); Mean Corpuscular Hgb Concent. 30.7 g/dl (32-36); Monocyte (Absolute #) 0.57 (0.0-1.3); Monocytes % 10.4 % (0.0-12.0); Neutrophil % 73.8 % (36.0-66.0); Platelet Count 255 K/mm3 (150-450); Red Blood Count 3.46 M/mm3 (4.1-5.4); Red Cell Distribution Width 22.3 % (11.5-14.0); White Blood Count 5.5 K/mm3 (4.0-10.5)
[2020-11-11 06:14] LABS: ANION GAP 6.9 MEQ/L (5-15); BLOOD UREA NITROGEN 3 mg/dL (7-17); CHLORIDE 107 mmol/L (98-107); Calcium 7.6 mg/dL (8.4-10.2); Carbon Dioxide 26 mmol/L (22-30); Creatinine 1 0.79 mg/dL (0.52-1.04); EST GLOMERULAR FILTRATION RATE > 60.0 ML/MIN; Glucose 111 mg/dL (74-106); Potassium 3.6 mmol/L (3.5-5.1); SODIUM 136 mmol/L (137-145)
[2020-11-11 06:50] LABS: Slide Review 1 YES
--- NOTE | 2020-11-11 09:07 | PCM.NOTE ---
Date and Time: 11/11/20904 Subjective Assessment: tolerating a regular diet, no nausea or vomiting. has some air and scant liquid output from ostomy. pain is minimal, she is hoping to discharge home today Objective Exam General Appearance: no apparent distress, alert Wound Assessment: Skin/Wound Assessment Wound/Incision Assessment Start: 11/08/20 08:29 Text: Status: Active Freq: Q6H Protocol: Document 11/11/20 08:00 RN (Rec: 11/11/20 08:12 RN [id number]) Wound/Incision Assessment Anterior Abdomen Wound Assessment Shift Assessment Wound Type Incision Wound Stage Non Pressure Wound Dressing Status Dry & Intact Drainage Amount Minimal Drainage Description Serous Drainage Odor None/Absent General Appearance Well Approximated,Sutures Intact,Kody Intact,Clean/ Dry Primary Dressing island dressing, drain sponge Wound Photo Photo Taken No Respiratory Exam: normal breath sounds, lungs clear, No respiratory distress Cardiovascular Exam: regular rate/rhythm, normal heart sounds Gastrointestinal/Abdomen Exam: soft, normal bowel sounds, other (ostomy pink and viable. scant serous fluid in RC drain) Extremity Exam: normal inspection, normal range of motion OBJECTIVE DATA Vital Signs: Vital Signs - 24 hr Temp Pulse Resp BP Pulse Ox 11/11/20 06:20 92 H 24 118/66 98 11/11/20 04:00 96.0 F 70 16 110/53 11/11/20 00:00 96.2 F 85 16 102/56 97 11/10/20 20:00 97.3 F 85 16 105/52 97 11/10/20 16:00 98.6 F 95 H 16 119/64 96 11/10/20 12:00 98.2 F 83 16 114/54 99 11/10/20 10:42 97 11/10/20 09:10 97 Pain Assessment - Last Documented Pain Intensity 0 Pain Scale Used 0-10 Pain Scale Intake and Output: Intake & Output 11/08/20 11/09/20 11/10/20 11/11/20 11:59 11:59 11:59 11:59 Intake Total 3703 2839 3334 3250 Output Total 1756 4761 9015 0494 Balance -2022146 -131 585 Weight 68.3 kg Lab Results: Lab Results-Last 24 Hours 11/10/20 11/11/20 11/11/20 Range/Units 04:40 04:33 04:33 WBC 5.5 (4.0-10.5) K/mm3 RBC 3.46 L (4.1-5.4) M/mm3 Hgb 8.2 L (12.0-16.0) gm/dl Hct 26.7 L (35-47) % MCV 77.2 L (78-100) fl MCH 23.7 L (26-32) pg MCHC 30.7 L (32-36) g/dl RDW 22.3 H (11.5-14.0) % Plt Count 255 (150-450) K/mm3 Gran % 73.8 H (36.0-66.0) % Eos # (Auto) 0.29 (0-0.5) Absolute Lymphs (auto) 0.55 L (1.0-4.6) Absolute Monos (auto) 0.57 (0.0-1.3) Lymphocytes % 10.0 L (24.0-44.0) % Monocytes % 10.4 (0.0-12.0) % Eosinophils % 5.3 H (0.00-5.0) % Basophils % 0.5 (0.0-0.4) % Absolute Granulocytes 4.04 (1.4-6.9) Basophils # 0.03 (0-0.4) Sodium 136 L (137-145) mmol/L Potassium 3.6 (3.5-5.1) mmol/L Chloride 107 (98-107) mmol/L Carbon Dioxide 26 (22-30) mmol/L Anion Gap 6.9 (5-15) MEQ/L BUN 3 L (7-17) mg/dL Creatinine 0.79 (0.52-1.04) mg/dL Estimated GFR > 60.0 ML/MIN Glucose 111 H (74-106) mg/dL Calcium 7.6 L (8.4-10.2) mg/dL Slides for Path Review YES YES Multi-Disciplinary Progress Notes: Multi-Disciplinary Progress Notes 11/10/20 11:30 Case Management Note by Kacie Enriquez S/W PATIENT- SHE CONTINUES TO DENY ANY NEEDS FOR HHC OR ANY OTHER NEW NEEDS AT TIME OF DC. NURSE REPORTS OSOTOMY SUPPLIES ARE SIZE 2 3/4". PATIENT REQUESTS TO USE [employer] FOR OSOTOMY SUPPLIES. NEW ORDER FOR SUPPLIES FAXED TO [facility] AT THIS TIME Initialized on 11/10/20 11:30 - END OF NOTE Assessment/Plan (1) S/P colon resection Current Visit: Yes Status: Acute Code(s): Z90.49 - ACQUIRED ABSENCE OF OTHER SPECIFIED PARTS OF DIGESTIVE TRACT (2) Partial obstruction of small intestine Current Visit: Yes Status: Acute Code(s): K56.600 - PARTIAL INTESTINAL OBSTRUCTION, UNSPECIFIED TO CAUSE (3) Crohns disease of small intestine Current Visit: Yes Status: Acute Code(s): K50.00 - CROHN'S DISEASE OF SMALL INTESTINE WITHOUT COMPLICATIONS (4) Hypokalemia Current Visit: Yes Status: Acute Code(s): E87.6 - HYPOKALEMIA (5) UTI (urinary tract infection) Current Visit: Yes Status: Acute Assessment & Plan: therapy completed here, home abx will be determined if surgery wants longer course Code(s): N39.0 - URINARY TRACT INFECTION, SITE NOT SPECIFIED
[2020-11-11] MEDS: Pepcid 20 MG VIAL IV SCH (09:35)
[2020-11-11] MEDS: Levaquin 250MG/50ML D5W 250 MG/50 ML BAG IV SCH (09:35)
[2020-11-11] MEDS: TYLENOL 325 MG PO PRN (09:40)
--- NOTE | 2020-11-11 16:28 | PCM.DS ---
Discharge Summary Date of Admission: 11/03/20 21:30 Admitting Physician: BRITTNEY RODRIGUEZ Consults: Consults on Case 11/03/20 16:10 Consult Surgery ROUTINE 11/05/20 01:07 Notify Anesthesia Provider PRN 11/05/20 01:15 Notify Physician ROUTINE Primary Care Provider: BRITTNEY RODRIGUEZ Allergies Allergies No Known Drug Allergies Allergy (Verified 11/03/20 17:28) Hospital Summary - Hospital Course Hospital Course: patient was admitted with distal partial SBO, had surgery by Dr Nba Swain and required resection x 2 and repair of colovesical fistula. has ostomy, she is tolerating po intake and pain is well controlled. she has been fully treated for UTI associated with fistula and culture results. - Vitals & Intake/Output Vital Signs: Vital Signs Temperature 97.5 F 11/11/20 10:00 Pulse Rate 96 H 11/11/20 10:00 Respiratory Rate 16 11/11/20 10:00 Blood Pressure 109/52 11/11/20 10:00 O2 Sat by Pulse Oximetry 98 11/11/20 10:00 Intake & Output: Intake & Output 11/09/20 11/10/20 11/11/20 11/12/20 11:59 11:59 11:59 11:59 Intake Total 2839 3334 3250 Output Total 2985 3465 2755 Balance -146 -131 495 - Lab Result Diagrams: 11/11/20 04:33 11/11/20 04:33 Lab Results-Last 24 Hrs: Lab Results-Last 24 Hours 11/11/20 11/11/20 Range/Units 04:33 04:33 WBC 5.5 (4.0-10.5) K/mm3 RBC 3.46 L (4.1-5.4) M/mm3 Hgb 8.2 L (12.0-16.0) gm/dl Hct 26.7 L (35-47) % MCV 77.2 L (78-100) fl MCH 23.7 L (26-32) pg MCHC 30.7 L (32-36) g/dl RDW 22.3 H (11.5-14.0) % Plt Count 255 (150-450) K/mm3 Gran % 73.8 H (36.0-66.0) % Eos # (Auto) 0.29 (0-0.5) Absolute Lymphs (auto) 0.55 L (1.0-4.6) Absolute Monos (auto) 0.57 (0.0-1.3) Lymphocytes % 10.0 L (24.0-44.0) % Monocytes % 10.4 (0.0-12.0) % Eosinophils % 5.3 H (0.00-5.0) % Basophils % 0.5 (0.0-0.4) % Absolute Granulocytes 4.04 (1.4-6.9) Basophils # 0.03 (0-0.4) Sodium 136 L (137-145) mmol/L Potassium 3.6 (3.5-5.1) mmol/L Chloride 107 (98-107) mmol/L Carbon Dioxide 26 (22-30) mmol/L Anion Gap 6.9 (5-15) MEQ/L BUN 3 L (7-17) mg/dL Creatinine 0.79 (0.52-1.04) mg/dL Estimated GFR > 60.0 ML/MIN Glucose 111 H (74-106) mg/dL Calcium 7.6 L (8.4-10.2) mg/dL Slides for Path Review YES Micro Results-Entire Visit: Microbiology 11/04/20 18:39 Wound Culture - Final Body Fluid - Not Known NO GROWTH 11/04/20 18:39 Urine Culture - Final Urine, Catheterized Escherichia Coli Enterococcus Gallinarum 11/03/20 20:20 Urine Culture - Final Clean Catch Midstream Escherichia Coli - Procedures and Test Procedures and Tests throughout Hospitalization: Therapy Orders & Screens 11/05/20 01:03 Oxygen Nasal Cannula 2 lpm Comment: Diagnosis: partial sbo, chron's disease exacerbation 11/05/20 12:27 Incentive Spirometry TID Comment: Diagnosis: partial sbo, chron's disease exacerbation Discharge Exam General Appearance: no apparent distress, alert Respiratory Exam: normal breath sounds, lungs clear, No respiratory distress Cardiovascular Exam: regular rate/rhythm, normal heart sounds Gastrointestinal/Abdomen Exam: soft, normal bowel sounds, other (ostomy pink and viable, scant clear serous fluid in RC drain.) Extremity Exam: normal inspection, normal range of motion Wound Assessment: Skin/Wound Assessment Wound/Incision Assessment Start: 11/08/20 08:29 Text: Status: Active Freq: Q6H Protocol: Document 11/11/20 14:00 RN (Rec: 11/11/20 14:18 RN [id number]) Wound/Incision Assessment Anterior Abdomen Wound Assessment Shift Assessment Wound Type Incision Wound Stage Non Pressure Wound Dressing Status Dry & Intact Drainage Amount Minimal Drainage Description Serous Drainage Odor None/Absent General Appearance Well Approximated,Sutures Intact,Kody Intact,Clean/ Dry Primary Dressing island dressing, drain sponge Wound Photo Photo Taken No Final Diagnosis/Problem List - Final Discharge Diagnosis/Problem (1) S/P colon resection Current Visit: Yes Status: Acute Code(s): Z90.49 - ACQUIRED ABSENCE OF OTHER SPECIFIED PARTS OF DIGESTIVE TRACT (2) Partial obstruction of small intestine Current Visit: Yes Status: Acute Code(s): K56.600 - PARTIAL INTESTINAL OBSTRUCTION, UNSPECIFIED TO CAUSE (3) Crohns disease of small intestine Current Visit: Yes Status: Acute Code(s): K50.00 - CROHN'S DISEASE OF SMALL INTESTINE WITHOUT COMPLICATIONS (4) Hypokalemia Current Visit: Yes Status: Acute Code(s): E87.6 - HYPOKALEMIA (5) UTI (urinary tract infection) Current Visit: Yes Status: Acute Code(s): N39.0 - URINARY TRACT INFECTION, SITE NOT SPECIFIED - Discharge Disposition: Home, Self-Care Condition: Stable Prescriptions: New Hydrocodone/Acetaminophen [Hydrocodone-Acetamin 5-325 mg] 1 tab PO Q6HPRN PRN #20 tablet MDD 4 PRN Reason: Pain Hydrocodone/Acetaminophen [Hydrocodone-Acetamin 5-325 mg] 1 tab PO Q6HPRN PRN #20 tablet MDD 4 PRN Reason: Pain Continue Azathioprine [Imuran] 150 mg PO TID Ferrous Sulfate [Iron] 325 mg PO DAILY Discontinued Prednisone 20 mg [Deltasone 20 mg] 40 mg PO DAILY Additional Instructions: OSTOMY SUPPLIES ARE READY FOR [facility] AT [facility] , THEY WILL NEED YOUR INSURANCE CARD. Follow up with: BRITTNEY RODRIGUEZ MD [Primary Care Provider] - 11/18/20 10:15 am NBA SWAIN [ACTIVE STAFF] - 11/17/20 3:05 pm (at [facility] )
[2020-11-11 16:51] VITALS: BP 120/54; PULSE 95; O2SAT 97
[2020-11-11] MEDS ORDERED: PROVAYBLUE IV ONE (18:00)
== END 2020-11-11 17:50 | disposition home or self-care (01) | DRG 330 ==
LOC: MED SURG 16:02 → INTOOBSV 21:30 → OBSVTOIN 21:30 → ICU 11-04 20:33 → MED SURG 11-04 20:33
PROVIDERS: ADMIT Family Medicine; ATTEND Family Medicine
PROC: 0DBN0ZZ Excision of Sigmoid Colon, Open Approach (ICD-10-PCS; principal; 2020-11-04)
PROC: 0D1N0Z4 Bypass Sigmoid Colon to Cutaneous, Open Approach (ICD-10-PCS; 2020-11-04)
PROC: 0DTF0ZZ Resection of Right Large Intestine, Open Approach (ICD-10-PCS; 2020-11-04)
PROC: 0DNW0ZZ Release Peritoneum, Open Approach (ICD-10-PCS; 2020-11-04)
PROC: 0TQB0ZZ Repair Bladder, Open Approach (ICD-10-PCS; 2020-11-04)
DX: K56.51 Intestinal adhesions [bands], with partial obstruction (principal); K50.00 Crohn's disease of small intestine without complications; N39.0 Urinary tract infection, site not specified; K91.840 Postprocedural hemorrhage of a digestive system organ or structure following a digestive system procedure; B96.20 Unspecified Escherichia coli [E. coli] as the cause of diseases classified elsewhere; B95.2 Enterococcus as the cause of diseases classified elsewhere; E87.6 Hypokalemia; Z79.899 Other long term (current) drug therapy; D50.0 Iron deficiency anemia secondary to blood loss (chronic); Z20.828 Contact with and (suspected) exposure to other viral communicable diseases
CPT/HCPCS: 0241U; 36415; 36430; 36600; 36620; 62322; 64488; 76937; 76942; 80048; 80053; 81001; 82375; 82803; 83735; 84132; 85014; 85018; 85025; 86850; 86900; 86901; 86922; 87070; 87077; 87086; 87186; 88307; 94762; J0295; J0330; J1170; J1200; J1330; J1650; J1940; J1956; J2250; J2270; J2274; J2300; J2405; J2704; J2930; J3010; J3475; J3480; L0625; P9016; A9270-GY; Q9968

== ENCOUNTER 2021-03-09 08:21 | Day surgery (SDC) | payer BC ==
--- NOTE | 2021-03-03 13:53 | HP ---
DATE: 03/09/2021 HISTORY OF PRESENT ILLNESS: Patient presents with evaluation for ostomy takedown. Patient has significant Crohn's disease with a history of a fistula. The patient had an exploratory laparotomy back in October 2020 for small bowel obstruction and stricture with fistulization to the colon and she had fistulization to her bladder. She had a Ibrahima's with an end colostomy and a partial resection of the sigmoid with a rectal stump stapling. She also had a right hemicolectomy with primary anastomosis and she had urinary bladder cystorrhaphy. The patient has done well with her colostomy. She is on treatment for her Crohn's disease. Patient desires takedown of her colostomy. Will evaluate her with endoscopy. PAST MEDICAL HISTORY: Crohn's disease, anemia. CURRENT MEDICATIONS: Imuran, iron, [place]. ALLERGIES: NONE. PAST SURGERIES: Exploratory laparotomy for Crohn's disease, endometrial ablation. FAMILY HISTORY: Coronary artery disease, hypertension. SOCIAL HISTORY: None. REVIEW OF SYSTEMS: CONSTITUTIONAL: Denies fever, chills. CHEST: Denies shortness of breath. CVS: Denies chest pain. ABDOMEN: Denies abdomen pain. PHYSICAL EXAMINATION: GENERAL: No acute distress. CHEST: Nonlabored. No shortness of breath. CVS: Regular rate and rhythm. ABDOMEN: Soft. Ostomy pink. EXTREMITIES: No edema. NEURO: Alert. PSYCH: Appropriate. IMPRESSION: 1. UNDESIRED COLOSTOMY. PLAN: Colonoscopy through rectum and ostomy with Dr. Mychal Swain. This report was dictated for Dr. Swain by Ember Barron NP.
[2021-03-09] MEDS ORDERED: Lactated Ringers 1,000 ML IV SCH (09:00)
[2021-03-09] MEDS ORDERED: DIPRIVAN 200 MG/20 ML IV ONE ×2 (11:35→11:58)
[2021-03-09] MEDS ORDERED: Versed 2 MG/2 ML Injection ONE (11:38)
[2021-03-09 12:42] VITALS: O2SAT 97
[2021-03-09 13:06] VITALS: BP 119/59; PULSE 68
--- NOTE | 2021-03-09 14:42 | OP ---
SURGERY DATE/TIME: 03/09/2021 1139 PREOPERATIVE DIAGNOSIS: The patient has undesired colostomy. She had a segmental Ortiz procedure sigmoid colon with end stapling of the rectosigmoid and functional and descending colonoscopy. She has a history of Crohn's. POSTOPERATIVE DIAGNOSIS: She has severe Crohn's with fistulization in the pelvis. She is about three months out. She is doing well. Her Crohn's status remains stable at this time. She is not having any issues. It was felt that it is time to rescope the residual colon to check if there was possibility of putting this back together. PROCEDURE: Colonoscopy. SURGEON: Mychal Swain M.D. ANESTHESIA: MAC. DESCRIPTION OF PROCEDURE: On digital examination, it looks like she has had two previous perianal fistulas which are totally healed up it looks like many years ago. Her anal canal is clearly stenosed. It was dilated with the small fingertip followed by the fourth fingertip, followed by the scope. I do not think we could put EEA although we might be able to put a 25 EEA up there. It is certainly bigger just on the other side of the stenosis. It is 20 cm by number. It certainly does have just a little residual sigmoid. The functional ostomy is then cannulated. There is no stricture here at all and it was taken over to the cecum and this was 80 cm and it all seemed normal. IMPRESSION: It looks like the patient is a candidate. We will discuss this with her.
== END 2021-03-09 13:20 | disposition home or self-care (01) ==
LOC: SDC 08:21
PROVIDERS: ATTEND Surgery
DX: Z43.3 Encounter for attention to colostomy (principal); K50.90 Crohn's disease, unspecified, without complications
CPT/HCPCS: J2250; J2704

== ENCOUNTER 2021-04-17 11:32 | Inpatient (IN) | payer BC ==
--- NOTE | 2021-04-13 08:24 | HP ---
DATE OF SURGERY: 04/17/2021 HISTORY OF PRESENT ILLNESS: The patient is a female presenting for undesired colostomy. The patient has significant history of Crohn's disease. She initially had surgery back on 11/04/2020 for suspected colovesical fistula and small bowel obstruction. She underwent a Ibrahima's procedure with colonoscopy. The patient ended up having partial sigmoid colectomy with a rectal stump stapling. She had small and large bowel fistulization to her bladder. The patient also had fistulization from the small bowel to the colon. She also incidentally underwent a one-hour adhesiolysis during that procedure. The patient subsequently has been taking some Imuran for her Crohn's management. We did scope her back on 03/09/2021. Peritoneal canal was slightly stenosed and she also had some perianal fistulas that healed. Her anus was finger dilated and then with the colonoscope. We went to 20 cm with our colonoscope. There was no stricture. The rest of her colon was also scoped and appeared to be satisfactory. We discussed colostomy takedown with her. She agreed with the plan. PAST MEDICAL HISTORY: Crohn's disease, anemia. PAST SURGICAL HISTORY: Exploratory laparotomy for Crohn's disease, endometrial ablation. ALLERGIES: NKDA. MEDICATIONS: Imuran, iron, [place]. FAMILY HISTORY: Coronary artery disease, hypertension. SOCIAL HISTORY: None. REVIEW OF SYSTEMS: CONSTITUTIONAL: Denies fever or chills. CHEST: Denies shortness of breath. CVS: Denies chest pain. ABDOMEN: Denies abdominal pain, nausea, vomiting, diarrhea, constipation or rectal bleeding. PHYSICAL EXAMINATION: GENERAL: No acute distress. CHEST: Nonlabored. No shortness of breath. CVS: Regular rate and rhythm. ABDOMEN: Soft, nontender to palpation. IMPRESSION: Undesired colostomy. PLAN: Colostomy reversal with Dr. Mychal Swain and Dr. Jodie Swain to assist. As dictated by Ember Barron NP.
[~2021-04-17 11:32] MED LIST: ENTEREG 12 MG PO ONE; Lactated Ringers 1,000 ML IV ONE; MEFOXIN 2 GM PREMIX** 2 GM/50 ML ML IV SCH; Sensorcaine 0.25% 10 ML ONE
[2021-04-17] MEDS ORDERED: MEFOXIN 2 GM PREMIX** 2 GM/50 ML ML IV ONE (13:21)
[2021-04-17] MEDS ORDERED: Lactated Ringers 1,000 ML IV ONE ×2 (13:21→15:43)
[2021-04-17 13:39] LABS: Hematocrit 37.8 % (35-47); Hemoglobin 11.6 gm/dl (12.0-16.0); Mean Cell Volume 74.3 fl (78-100); Mean Corpuscular Hemoglobin 22.8 pg (26-32); Mean Corpuscular Hgb Concent. 30.7 g/dl (32-36); Platelet Count 279 K/mm3 (150-450); Red Blood Count 5.09 M/mm3 (4.1-5.4); Red Cell Distribution Width 17.5 % (11.5-14.0); White Blood Count 5.7 K/mm3 (4.0-10.5)
[2021-04-17] MEDS: Lactated Ringers 1,000 ML IV SCH (13:55)
[2021-04-17 14:12] LABS: ABO TYPING A; Antibody Screen NEGATIVE (NEGATIVE); RH TYPING NEGATIVE
[2021-04-17 14:26] LABS: ANION GAP 12.1 MEQ/L (5-15); Calcium 9.6 mg/dL (8.4-10.2); Creatinine 1 1.15 mg/dL (0.52-1.04); EST GLOMERULAR FILTRATION RATE 52.5 ML/MIN; Potassium 3.8 mmol/L (3.5-5.1)
[2021-04-17 14:28] LABS: Slide Review YES
[2021-04-17] MEDS ORDERED: Zemuron 100 MG/10 ML ONE ×3 (14:56→16:14)
[2021-04-17] MEDS ORDERED: Astramorph-Pf 5 MG/10 ML ONE (14:56)
[2021-04-17] MEDS ORDERED: Versed 2 MG/2 ML Injection ONE (14:56)
[2021-04-17] MEDS ORDERED: SUBLIMAZE 100 MCG/2 ML ONE (14:56)
[2021-04-17] MEDS ORDERED: DIPRIVAN 200 MG/20 ML IV ONE (14:56)
[2021-04-17] MEDS ORDERED: Decadron 4 MG INJ ONE (15:28)
[2021-04-17] MEDS ORDERED: Ephedrine Sulfate 50 MG/ML ONE (15:48)
[2021-04-17] MEDS ORDERED: PHENYLEPHRINE HCL ONE (16:27)
[2021-04-17] MEDS ORDERED: Marcaine 0.5%/Epinephrine 10 ML ONE (16:46)
[2021-04-17] MEDS ORDERED: Zofran 4 MG/2 ML VIAL ONE (17:51)
[2021-04-17] MEDS ORDERED: TORAdol 30 mg Injection ONE (17:52)
[2021-04-17] MEDS ORDERED: BRIDION 200MG/2ML IV ONE (17:53)
[2021-04-17 19:40] LABS: Appearance SLIGHTLY CLOUDY (CLEAR); Bacteria PACKED /HPF (NEGATIVE); Bilirubin NEGATIVE (NEGATIVE); Blood SMALL Ery/ul (0-5); Epithelial Cells RARE /HPF (FEW); Glucose NEGATIVE (NEGATIVE); Hyaline Casts 0-2 /LPF (0-2); Ketones NEGATIVE (NEGATIVE); Leukocyte Esterase NEGATIVE (NEGATIVE); Mucus SLIGHT /HPF (NEGATIVE); Nitrite POSITIVE (NEGATIVE); Protein,Urine Dip NEGATIVE (Negative); RBC 0-2 /HPF (0-2); Specific Gravity 1.006 (1.005-1.025); Urobilinogen NEGATIVE mg/dL (0-1)
[2021-04-17] MEDS ORDERED: HOLD NARCOTIC ANALGESICS AND SEDATIVES X24 HR MC PRN (20:05)
[2021-04-17] MEDS ORDERED: Narcan 0.4 MG/ML IV PRN (20:05)
[2021-04-17] MEDS ORDERED: CLARITIN 10 MG PO PRN (20:05)
[2021-04-17] MEDS ORDERED: DEMEROL 50 MG IV PRN (20:05)
[2021-04-17] MEDS ORDERED: Zofran 4 MG/2 ML VIAL IV PRN ×2 (20:05→20:13)
[2021-04-17] MEDS ORDERED: PERCOCET TABLET 5/325MG PO PRN (20:05)
[2021-04-17] MEDS ORDERED: Nubain 10 MG/ML IV PRN (20:05)
[2021-04-17] MEDS ORDERED: MORPHINE SULFATE 2 MG INJ IV PRN (20:05)
[2021-04-17] MEDS: D5W/0.45NS W/ 20mEq KCl 1000 ML 1,000 ML IV SCH (20:27)
[2021-04-17] MEDS: BENADRYL 50 MG/ML IV PRN (21:09)
[2021-04-17] MEDS: MEFOXIN 1 Gm/ D5W 50 Ml** 1 G/50 ML ML IV SCH (21:38)
[2021-04-18] MEDS: MEFOXIN 1 Gm/ D5W 50 Ml** 1 G/50 ML ML IV SCH ×3 (03:23→16:59)
[2021-04-18 05:43] LABS: Absolute Neutrophil Ct (ANC) 9.69 (1.4-6.9); Basophil (Absolute #) 0 (0-0.4); Eosinophil (Absolute #) 0 (0-0.5); Hemoglobin 10.1 gm/dl (12.0-16.0); Lymphocyte (Absolute #) 0.14 (1.0-4.6); Lymphocytes % 1.4 % (24.0-44.0); Mean Cell Volume 75.7 fl (78-100); Mean Corpuscular Hemoglobin 23.2 pg (26-32); Mean Corpuscular Hgb Concent. 30.6 g/dl (32-36); Monocyte (Absolute #) 0.48 (0.0-1.3); Monocytes % 4.7 % (0.0-12.0); Neutrophil % 93.9 % (36.0-66.0); Platelet Count 186 K/mm3 (150-450); Red Blood Count 4.36 M/mm3 (4.1-5.4); Red Cell Distribution Width 17.3 % (11.5-14.0); White Blood Count 10.3 K/mm3 (4.0-10.5)
[2021-04-18 07:10] LABS: Slide Review 1 YES
[2021-04-18] MEDS: D5W/0.45NS W/ 20mEq KCl 1000 ML 1,000 ML IV SCH ×2 (08:11→20:25)
--- NOTE | 2021-04-18 08:59 | OP ---
SURGERY DATE/TIME: 04/17/2021 1457 PREOPERATIVE DIAGNOSIS: Undesired colostomy with history of Crohn's disease and colostomy. POSTOPERATIVE DIAGNOSIS: Undesired colostomy with history of Crohn's disease and colostomy. PROCEDURE: Major colostomy takedown with colorectal anastomosis. SURGEON: Mychal Swain M.D. STILL CLEANER SURGEON: Jodie Swain M.D. ANESTHESIA: General. COMPLICATIONS: None. CONDITION: Stable. ESTIMATED BLOOD LOSS: 200 cc. DRAINS: None. 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 She had colonoscopy of the residual stump and the residual colon felt to be a candidate for colostomy take down. DESCRIPTION OF PROCEDURE: She was taken to surgery. General anesthetic. Routine prep and drape. Her midline incision was entered. Her fascia was back together in the midline excellent. There was no hernia. Around the stomal area there was no parastomal hernia either. The stoma was left in place. The omentum was taken out from underneath the incision. The cecum was mobilized. The cecum was able to be packed up into the right upper quadrant. The ileum was with the cecum and was satisfactory. The right tube and ovary had been totally . The uterus was . The ostomy was left in place. The small bowel was from the left pelvic side wall and pelvis. At this time the uterus identified about 3 inches of rectal stump was identified behind the uterus. The lateral edges of this however were developed and the very superior edge was not developed initially. Subsequently about a 2 cm area was developed corresponding to probably the original dissection. This end was totally intact and in good condition. The bladder was anterior and was satisfactory. The field was excellent. Colonoscope was placed. There were six or eight large pieces of mucous stool that were pulled out manually and then this was generously irrigated. The rectum including the rectal stump was totally irrigated and clean. The ostomy was taken down. It was then marked. It had satisfactory length. The 29 head was chosen and this head then able to be dilated to 28 below. It was propped up the side. The MAUREEN stapling device was then used 2 cm away from the circular edge, going below the 29 staple was placed at the guidance of the up above surgeon to come out right through the middle of the previous staple line just one hair above. This was brought down into the green zone 75%. It was fired and fired nicely. The staple removed. The stapler pulled out nicely. The scope introduced. Fluid was placed in the pelvis. Over top with the circular stapling device, MAUREEN stapling device and there was no air leak. No drains were placed. The field was dry. The ostomy site fascia was closed with loop 0 PDS. The anterior abdominal wall fascia closed with loop PDS. The NG tube had been checked and was in proper position. The Cort[place] was in proper position. Skin closed with vertical mattress sutures of 2-0 Prolene, Manjinder applied. The patient tolerated the procedure satisfactorily. Findings discussed with the in the waiting room. As noted, the completion colonoscopy was satisfactory.
[2021-04-18] MEDS: BENADRYL 50 MG/ML IV PRN (11:32)
[2021-04-18] MEDS: MORPHINE SULFATE 4 MG INJ IV PRN ×2 (16:59→20:04)
[2021-04-18] MEDS ORDERED: NORCO 5/325 MG PO PRN (20:00)
[2021-04-19] MEDS: MORPHINE SULFATE 4 MG INJ IV PRN ×5 (00:40→22:00)
[2021-04-19] MEDS: D5W/0.45NS W/ 20mEq KCl 1000 ML 1,000 ML IV SCH ×2 (06:18→18:24)
[2021-04-19] MEDS: ROCEPHIN 1 Gm-D5w 50 ml Bag** 1 G/50 ML IVPB IV SCH (14:55)
[2021-04-20] MEDS: MORPHINE SULFATE 4 MG INJ IV PRN ×2 (03:01→11:08)
[2021-04-20 05:12] LABS: Hematocrit 30.5 % (35-47); Hemoglobin 9.2 gm/dl (12.0-16.0); Mean Cell Volume 77.4 fl (78-100); Mean Corpuscular Hemoglobin 23.4 pg (26-32); Mean Corpuscular Hgb Concent. 30.2 g/dl (32-36); Platelet Count 176 K/mm3 (150-450); Red Blood Count 3.94 M/mm3 (4.1-5.4); Red Cell Distribution Width 17.4 % (11.5-14.0); White Blood Count 6.3 K/mm3 (4.0-10.5)
[2021-04-20] MEDS: D5W/0.45NS W/ 20mEq KCl 1000 ML 1,000 ML IV SCH ×2 (05:17→17:17)
[2021-04-20 05:31] LABS: ANION GAP 10.6 MEQ/L (5-15); BLOOD UREA NITROGEN 7 mg/dL (7-17); CHLORIDE 97 mmol/L (98-107); Calcium 8.7 mg/dL (8.4-10.2); Carbon Dioxide 31 mmol/L (22-30); Creatinine 1 0.71 mg/dL (0.52-1.04); EST GLOMERULAR FILTRATION RATE > 60.0 ML/MIN; Glucose 134 mg/dL (74-106); Potassium 3.6 mmol/L (3.5-5.1); SODIUM 135 mmol/L (137-145)
[2021-04-20 07:54] LABS: Slide Review YES
[2021-04-20] MEDS: ROCEPHIN 1 Gm-D5w 50 ml Bag** 1 G/50 ML IVPB IV SCH (09:40)
[2021-04-20] MEDS: MEDICATION ON HOLD MC SCH (10:18)
[2021-04-21] MEDS: D5W/0.45NS W/ 20mEq KCl 1000 ML 1,000 ML IV SCH (02:46)
[2021-04-21 05:11] LABS: Hematocrit 30.5 % (35-47); Hemoglobin 9.3 gm/dl (12.0-16.0); Mean Cell Volume 76.3 fl (78-100); Mean Corpuscular Hemoglobin 23.3 pg (26-32); Mean Corpuscular Hgb Concent. 30.5 g/dl (32-36); Platelet Count 202 K/mm3 (150-450); Red Cell Distribution Width 17.2 % (11.5-14.0); White Blood Count 5.6 K/mm3 (4.0-10.5)
[2021-04-21 05:35] LABS: ANION GAP 11.7 MEQ/L (5-15); BLOOD UREA NITROGEN 5 mg/dL (7-17); CHLORIDE 100 mmol/L (98-107); Calcium 9.1 mg/dL (8.4-10.2); Carbon Dioxide 29 mmol/L (22-30); Creatinine 1 0.71 mg/dL (0.52-1.04); EST GLOMERULAR FILTRATION RATE > 60.0 ML/MIN; Glucose 123 mg/dL (74-106); Potassium 3.7 mmol/L (3.5-5.1); SODIUM 137 mmol/L (137-145)
[2021-04-21 06:24] LABS: Slide Review YES
[2021-04-21] MEDS: Lactated Ringers 1,000 ML IV SCH (07:31)
[2021-04-21] MEDS: ROCEPHIN 1 Gm-D5w 50 ml Bag** 1 G/50 ML IVPB IV SCH (09:12)
[2021-04-21] MEDS: MEDICATION ON HOLD MC SCH (10:32)
[2021-04-21 12:49] VITALS: O2SAT 100
[2021-04-21 16:42] VITALS: BP 135/59; PULSE 102
== END 2021-04-21 17:25 | disposition home or self-care (01) | DRG 345 ==
LOC: MED SURG 12:36
PROVIDERS: ADMIT Surgery; ATTEND Surgery
PROC: 0DSN0ZZ Reposition Sigmoid Colon, Open Approach (ICD-10-PCS; principal; 2021-04-17)
DX: Z43.3 Encounter for attention to colostomy (principal); N39.0 Urinary tract infection, site not specified; B96.20 Unspecified Escherichia coli [E. coli] as the cause of diseases classified elsewhere; Z87.19 Personal history of other diseases of the digestive system; Z20.822 Contact with and (suspected) exposure to COVID-19; Z79.899 Other long term (current) drug therapy
CPT/HCPCS: 36415; 62322; 64488; 76937; 76942; 80048; 81001; 85025; 85027; 86850; 86900; 86901; 87077; 87086; 87186; 88304; 88307; 94762; J0694; J0696; J1100; J1200; J1885; J2250; J2270; J2274; J2300; J2370; J2405; J2704; J3010; L0625; U0003

== ENCOUNTER 2025-03-25 09:07 | Day surgery (SDC) | payer OTHER ==
--- NOTE | 2025-03-22 11:14 | HP ---
HISTORY OF PRESENT ILLNESS: The patient has a history of Crohn's. She has had colon resection with Dr. Swain. She takes Entyvio currently for her Crohn's disease. She sees GI in June. She has no issues at this time. Last scope was 4 years ago. PAST MEDICAL HISTORY: Crohn's disease. MEDICATIONS: Entyvio. PAST SURGICAL HISTORY: Colon resection, colostomy takedown. FAMILY HISTORY: Heart disease. SOCIAL HISTORY: Negative. ALLERGIES: Negative. REVIEW OF SYSTEMS: CONSTITUTIONAL: Denies fever or chills. CHEST: Denies shortness of breath. CARDIOVASCULAR: Denies chest pain. ABDOMEN: Denies abdominal pain. PHYSICAL EXAMINATION: GENERAL: No acute distress. RESPIRATORY: Nonlabored. No shortness of breath. CARDIOVASCULAR: Regular rate and rhythm. ABDOMEN: Soft. ASSESSMENT: History of Crohn's disease. PLAN: Colonoscopy with Dr. Mychal Swain. This report was dictated for Dr. Swain by Ember Barron NP.
[2025-03-25] MEDS ORDERED: Lactated Ringers 1,000 ML IV ONE (09:19)
[2025-03-25 09:21] VITALS: RESP 18
[2025-03-25] MEDS: Lactated Ringers 1,000 ML IV SCH (09:25)
[2025-03-25] MEDS ORDERED: propofoL IV ONE ×3 (10:59→11:29)
[2025-03-25 12:02] VITALS: PULSE 60
[2025-03-25 12:12] VITALS: BP 109/84; TEMP 97.2; O2SAT 98
--- NOTE | 2025-03-26 09:25 | OP ---
SURGERY DATE/TIME: 03/25/2025 [id number] PREOPERATIVE DIAGNOSIS: Screening. POSTOPERATIVE DIAGNOSIS: Normal examination. PROCEDURE: Colonoscopy complete with cold biopsy x3; cold biopsy of the ileum, cold biopsy of the mid colon and cold biopsy of the rectum. SURGEON: Mychal Swain MD [facility], Philip Butler MD. COMPLICATIONS: None. CONDITION: Stable. INDICATIONS: Patient presents for screening exam. DESCRIPTION OF PROCEDURE AND FINDINGS: Taken to endoscopy, left lateral decubitus position. Anal digital examination is satisfactory. Scope introduced. It was a little redundant and a little angulated and a little spastic on the left side. The scope had to be pulled out and reinserted, but then it straightened some and the scope advanced upwards through the splenic flexure, across to the anastomosis. The anastomosis was normal. A cold biopsy of the ileum was taken. Cold biopsy of the mid colon was taken and a cold biopsy of the rectum was taken. Exam was basically normal. Patient had a previous history of resection for Crohn's disease about 10 to 12 years ago. She is doing very well at this time. I do not expect the biopsies to show anything significant. There was no gross irritation on the exam today and it was wide open.
== END 2025-03-25 12:22 | disposition home or self-care (01) ==
LOC: SDC 09:07
PROVIDERS: ATTEND Surgery
DX: Z12.11 Encounter for screening for malignant neoplasm of colon (principal); K50.90 Crohn's disease, unspecified, without complications; Z90.49 Acquired absence of other specified parts of digestive tract; K62.1 Rectal polyp